=== PATIENT | female | born 1940 | race Caucasian/White ===

== ENCOUNTER 2018-05-22 09:57 | Emergency (ER) | payer MEDICARE, BC ==
[~2018-05-22] VITALS: Ht 170.2 cm; Wt 81.6 kg
[~2018-05-22 09:57] MED LIST: CELE200C PO; CYCL5TAB PO; DIAZ5TAB PO; DOXE150C PO; FLUO20CA36 PO; LEVO100T PO; OMEP20TA5 PO; PROAIR INHALER INH; ROSU10TA PO; TAPE100T9 PO
[2018-05-22 10:27] LABS: BASOPHILS % (AUTO) 0.3 % (0.0-2.0); EOSINOPHILS # (AUTO) 0.1 K/uL (0.0-0.7); EOSINOPHILS % (AUTO) 1.8 % (0.0-7.0); HEMATOCRIT 45.9 % (31.2-41.9); HEMOGLOBIN 15.5 g/dL (10.9-14.3); LYMPHOCYTES # (AUTO) 1.2 K/uL (20.0-40.0); LYMPHOCYTES % (AUTO) 26.5 % (20.5-51.5); MEAN CORPUSCULAR HGB CONC 34 g/dL (32.3-35.6); MEAN CORPUSCULAR VOLUME 94.6 fL (75.5-95.3); MONOCYTES # (AUTO) 0.4 K/uL (2.0-10.0); MONOCYTES % (AUTO) 7.9 % (0.0-11.0); NEUTROPHILS # (AUTO) 2.9 K/uL (1.8-8.9); NEUTROPHILS % (AUTO) 63.5 % (38.5-71.5); PLATELET COUNT (AUTO) 203 K/uL (179-408); RED BLOOD CELL COUNT(AUTO) 4.85 MIL/uL (3.63-4.92); WHITE BLOOD COUNT (AUTO) 4.6 K/uL (3.8-11.8)
--- NOTE | 2018-05-22 10:31 | NUR ---
I property disposal manager MD during the rectal exam. No active rectal bleeding seen during visual rectal exam.
--- NOTE | 2018-05-22 10:32 | NUR ---
MD did the rectal exam and the stool for hemocult was collected. Negative per MD.
[2018-05-22 10:37] LABS: CARBON DIOXIDE 28 mmol/L (21-32); CHLORIDE 106 mmol/L (98-107); CREATININE 1.1 mg/dL (0.6-1.3); GLUCOSE 100 mg/dL (74-106); POTASSIUM 3.9 mmol/L (3.5-5.1); UREA NITROGEN, BLOOD 18 mg/dL (7-18)
--- NOTE | 2018-05-22 11:39 | NUR ---
Copies of all the diagnostic tests were provided to patient. Patient discharged to home in stable conditon. Written and verbal after care instructions given to patient and her private caregiver. Patient and caregiver verbalized understanding of instructions.
== END 2018-05-22 11:41 | disposition home or self-care (01) ==
LOC: ER 09:57
DX: K62.5 Hemorrhage of anus and rectum (principal); Z85.038 Personal history of other malignant neoplasm of large intestine; E78.5 Hyperlipidemia, unspecified; I25.10 Atherosclerotic heart disease of native coronary artery without angina pectoris; J44.9 Chronic obstructive pulmonary disease, unspecified; K21.9 Gastro-esophageal reflux disease without esophagitis; E03.9 Hypothyroidism, unspecified; F17.200 Nicotine dependence, unspecified, uncomplicated; Z90.49 Acquired absence of other specified parts of digestive tract
CPT/HCPCS: 36415; 85025; 85730; A4663

== ENCOUNTER 2019-02-21 11:52 | Emergency (ER) | payer MEDICARE, BC ==
[~2019-02-21] VITALS: Ht 167.6 cm; Wt 79.4 kg
[~2019-02-21 11:52] MED LIST changes: -ROSU10TA PO; +ROSU10TA2 PO
--- NOTE | 2019-02-21 12:23 | NUR ---
KEESHA SWIFT AT BEDSIDE FOR MSE.
[2019-02-21] MEDS ORDERED: ASPI-605 PO (12:31)
[2019-02-21] MEDS ORDERED: MAGNESIUM (12:31)
[2019-02-21] MEDS ORDERED: VICODIN PO (12:31)
[2019-02-21] MEDS ORDERED: VIT B 12 (12:31)
[2019-02-21] MEDS ORDERED: VIT D3 (12:31)
[2019-02-21] MEDS ORDERED: GABA-534 PO (12:31)
[2019-02-21] MEDS ORDERED: ZOLP10TA6 PO (12:31)
[2019-02-21 12:52] LABS: BASOPHILS % (AUTO) 0.3 % (0.0-2.0); EOSINOPHILS % (AUTO) 0.5 % (0.0-7.0); HEMATOCRIT 44.6 % (31.2-41.9); HEMOGLOBIN 14.9 g/dL (10.9-14.3); LYMPHOCYTES # (AUTO) 0.8 K/uL (20.0-40.0); LYMPHOCYTES % (AUTO) 16.7 % (20.5-51.5); MEAN CORPUSCULAR HEMOGLOBIN 32.1 uug (24.7-32.8); MEAN CORPUSCULAR HGB CONC 33 g/dL (32.3-35.6); MEAN CORPUSCULAR VOLUME 96.2 fL (75.5-95.3); MONOCYTES # (AUTO) 0.3 K/uL (2.0-10.0); MONOCYTES % (AUTO) 5.4 % (0.0-11.0); NEUTROPHILS # (AUTO) 3.8 K/uL (1.8-8.9); NEUTROPHILS % (AUTO) 77.1 % (38.5-71.5); PLATELET COUNT (AUTO) 168 K/uL (179-408); RED BLOOD CELL COUNT(AUTO) 4.64 MIL/uL (3.63-4.92)
[2019-02-21 12:53] LABS: CARBON DIOXIDE 29 mmol/L (21-32); CHLORIDE 105 mmol/L (98-107); GLUCOSE 112 mg/dL (74-106); POTASSIUM 4.6 mmol/L (3.5-5.1); UREA NITROGEN, BLOOD 13 mg/dL (7-18)
[2019-02-21 13:05] LABS: ALANINE AMINOTRANSFERASE 24 U/L (14-59); ALKALINE PHOSPHATASE 118 U/L (50-136); ASPARTATE AMINOTRANSFERASE 19 U/L (15-37); BILIRUBIN,DIRECT 0.2 mg/dL (0.0-0.2); BILIRUBIN,TOTAL 0.5 mg/dL (0.2-1.0); TOTAL PROTEIN, SERUM 7.1 g/dL (6.4-8.2)
--- NOTE | 2019-02-21 14:07 | NUR ---
Patient discharged to home in stable conditon. Written and verbal after care instructions given. Patient verbalizes understanding of instructions. ALL BELONGINGS W/ PT. PT SELF-AMBULATED W/O DIFFICULTY. 20G IV ACCESS IN RAC REMOVED PRIOR TO D/C - INNER CANNULA INTACT.
[2019-02-21 14:08] VITALS: BP 141/69
== END 2019-02-21 14:08 | disposition home or self-care (01) ==
LOC: ER 11:52
DX: G62.9 Polyneuropathy, unspecified (principal); E78.5 Hyperlipidemia, unspecified; I25.10 Atherosclerotic heart disease of native coronary artery without angina pectoris; E03.9 Hypothyroidism, unspecified; F17.200 Nicotine dependence, unspecified, uncomplicated; Z90.49 Acquired absence of other specified parts of digestive tract; Z79.899 Other long term (current) drug therapy
CPT/HCPCS: 36415; 70030-TC; 71045; 85025; 85730; 93005; A4663; J7030

== ENCOUNTER 2019-05-12 16:05 | Inpatient (IN) | payer MEDICARE, BC ==
[~2019-05-12] VITALS: Ht 170.2 cm; Wt 77.1 kg
[~2019-05-12 16:05] MED LIST changes: +ASPI-605 PO; +GABA-534 PO; +MAGNESIUM; +VICODIN PO; +VIT B 12; +VIT D3; +ZOLP10TA6 PO
[2019-05-12] MEDS ORDERED: IV NORMAL SALINE 1000 ML BAG IV ONE (16:45)
[2019-05-12 17:07] LABS: BASOPHILS % (AUTO) 0.4 % (0.0-2.0); EOSINOPHILS % (AUTO) 0.6 % (0.0-7.0); HEMATOCRIT 43.2 % (31.2-41.9); HEMOGLOBIN 13.9 g/dL (10.9-14.3); LYMPHOCYTES # (AUTO) 1.3 K/uL (20.0-40.0); LYMPHOCYTES % (AUTO) 28.8 % (20.5-51.5); MEAN CORPUSCULAR HEMOGLOBIN 31.7 uug (24.7-32.8); MEAN CORPUSCULAR HGB CONC 32 g/dL (32.3-35.6); MEAN CORPUSCULAR VOLUME 98.5 fL (75.5-95.3); MONOCYTES # (AUTO) 0.4 K/uL (2.0-10.0); MONOCYTES % (AUTO) 9.7 % (0.0-11.0); NEUTROPHILS # (AUTO) 2.8 K/uL (1.8-8.9); NEUTROPHILS % (AUTO) 60.5 % (38.5-71.5); PLATELET COUNT (AUTO) 162 K/uL (179-408); RED BLOOD CELL COUNT(AUTO) 4.39 MIL/uL (3.63-4.92); WHITE BLOOD COUNT (AUTO) 4.6 K/uL (3.8-11.8)
[2019-05-12 17:11] LABS: *BILIRUBIN,URIN NEGATIVE (NEGATIVE); *BLOOD, URINE 3+ (NEGATIVE); *CLARITY,URINE SLIGHTLY CLOUDY (CLEAR); *COLOR,URINE YELLOW (YELLOW); *KETONES,URINE NEGATIVE (NEGATIVE); *UROBILINOGEN,URINE 0.2 E.U./dl (NORMAL); LEUKOCYTE ESTERASE ,URINE 1+ (NEGATIVE); NITRITE, URINE NEGATIVE (NEGATIVE); UGLUCOSE NEGATIVE (NEGATIVE)
[2019-05-12 17:13] LABS: POTASSIUM 3.9 mmol/L (3.5-5.1)
[2019-05-12 17:19] LABS: BILIRUBIN,DIRECT 0.1 mg/dL (0.0-0.2); BILIRUBIN,TOTAL 0.4 mg/dL (0.2-1.0); TOTAL PROTEIN, SERUM 6.8 g/dL (6.4-8.2)
[2019-05-12 17:36] LABS: RBC,URINE 80-100 /HPF (0-3)
[2019-05-12 17:37] LABS: BACTERIA,URINE FEW /HPF (NONE SEEN)
[2019-05-12 17:38] LABS: SQUAMOUS EPITHELIAL CELL,UR FEW /HPF (NONE SEEN)
[2019-05-12] MEDS ORDERED: ZOLP10TA6 PO (17:50)
[2019-05-12] MEDS ORDERED: DICY10SY2 PO (17:50)
[2019-05-12] MEDS ORDERED: CYAN100T3 PO (17:50)
[2019-05-12] MEDS ORDERED: GABA-534 PO (17:50)
[2019-05-12] MEDS ORDERED: HYDR-3974 PO (17:50)
[2019-05-12] MEDS ORDERED: ASPI-612 PO (17:50)
[2019-05-12] MEDS ORDERED: CHOL200059 PO (17:51)
[2019-05-12] MEDS ORDERED: POTA2TAB18 PO (17:51)
[2019-05-12] MEDS ORDERED: Z GUARD REMEDY PASTE 57 GM TUBE TOP PRN (19:30)
[2019-05-12] MEDS ORDERED: DICYCLOMINE HCL LIQ 10 MG/5 ML UDC PO PRN (19:30)
[2019-05-12] MEDS ORDERED: ONDANSETRON 4 MG/2 ML VIAL IV PRN (19:30)
[2019-05-12] MEDS ORDERED: ACETAMINOPHEN 325 MG TABLET PO PRN (19:30)
[2019-05-12] MEDS ORDERED: DIAZEPAM 5 MG TABLET PO PRN (19:30)
[2019-05-12] MEDS ORDERED: MAGNESIUM HYDROXIDE 30 ML LIQUID UDC PO PRN (19:30)
--- NOTE | 2019-05-12 19:35 | NUR ---
Pt. admitted to m/s , under care of Dr. WILLSON Belongs List completed. report given to ORLANDO STEWART
[2019-05-12 20:47] VITALS: BP 157/82
[2019-05-12] MEDS ORDERED: GABAPENTIN 300 MG CAPSULE PO SCH (21:00)
[2019-05-12] MEDS ORDERED: ZOLPIDEM 5 MG TABLET PO PRN (21:00)
[2019-05-12] MEDS ORDERED: CEFTRIAXONE 1 G in IV DEXTROSE 5% 50 ML IV SCH (21:30)
[2019-05-12] MEDS: HYDROCODONE/APAP 5-325MG TABLET PO PRN (21:51)
[2019-05-12] MEDS: IV NS 1000 ML 1,000 ML IV PRN (21:54)
[2019-05-12] MEDS ORDERED: CEFTRIAXONE /D5W 50ML IVPB **ER PYXIS IV ONE (21:55)
--- NOTE | 2019-05-12 22:00 | NUR ---
Received report from ER nurse at 1945, received patient from ER at 1999. Full body assessment done, belongings accounted for with patient's acknowledgement signature taken for hospital protocols. Oriented with room controls including call light. Fall precautions reinforced. Initial admission process started and documented accordingly. Pt wanted a flu shot, but wants it in the morning. IV access started at ER accidentally pulled out by patient. Reinserted new peripheral IV site at R forearm, 22 G. Noted all MD's admission orders and carried out. At this time, patient is able to ambulate to bathroom with FWW and supervision. Pt complains of loose watery stools x 3, paged Dr. Holt. Awaiting call back. Will continue to monitor patient.
[2019-05-12] MEDS ORDERED: INFLUENZA VACCINE 2019-2020 0.5 ML DISP.SYRIN IM ONE (23:00)
--- NOTE | 2019-05-13 | NUR ---
Patient kept comfortable in bed with warm blankets and provided pain medications for abdominal pain which is effective. Pt also requested for sleeping medication, but pt remains awake and unable to fall asleep. At 05/12 2345 MD called back and ordered for stool Cdif and Imodium for earlier complaints of diarhhea. Pt with one more BM at this time, but with semi formed stool fragments, dark green in color. Sent to lab. Pt refused the Imodium at this time stating she feels better after last bowel movement. Pt's abdominal pain has subsided as well, and patient will try to go to sleep. Pt states that at home, she gets O2, obtained order to start O2 2LPM PRN. Will continue to monitor patient.
[2019-05-13 05:11] VITALS: BP 135/57
--- NOTE | 2019-05-13 05:59 | NUR ---
Patient kept comfortable throughout the night, no further episodes of diarrhea. Placed patient on precautionary isolation for Cdiff. Signs posted at the door. No further complaints of abdominal pain as well. Pt verbalized that the Ambien and Neurontin was not fully effective, and she needs stronger doses, similar to the one she takes at home. Will endorse to AM nurse for proper communication with MD. Patient's own meds to be sent to pharmacy. No further issues. Verbalized that needs were met throughout shift. Will continue to monitor and endorse accordingly.
[2019-05-13] MEDS ORDERED: DICYCLOMINE HCL 10 MG CAPSULE PO PRN (07:15)
[2019-05-13 07:30] LABS: BASOPHILS % (AUTO) 0.3 % (0.0-2.0); EOSINOPHILS # (AUTO) 0.1 K/uL (0.0-0.7); EOSINOPHILS % (AUTO) 2.2 % (0.0-7.0); HEMATOCRIT 39.7 % (31.2-41.9); LYMPHOCYTES # (AUTO) 1.6 K/uL (20.0-40.0); LYMPHOCYTES % (AUTO) 36.2 % (20.5-51.5); MEAN CORPUSCULAR HEMOGLOBIN 32.3 uug (24.7-32.8); MEAN CORPUSCULAR HGB CONC 33 g/dL (32.3-35.6); MEAN CORPUSCULAR VOLUME 98.2 fL (75.5-95.3); MONOCYTES # (AUTO) 0.3 K/uL (2.0-10.0); NEUTROPHILS # (AUTO) 2.3 K/uL (1.8-8.9); NEUTROPHILS % (AUTO) 53.3 % (38.5-71.5); PLATELET COUNT (AUTO) 153 K/uL (179-408); RED BLOOD CELL COUNT(AUTO) 4.04 MIL/uL (3.63-4.92); WHITE BLOOD COUNT (AUTO) 4.4 K/uL (3.8-11.8)
[2019-05-13] MEDS ORDERED: LOPERAMIDE HCL 2 MG CAPSULE PO PRN ×2 (07:30)
[2019-05-13] MEDS ORDERED: LEVOTHYROXINE SODIUM 100 MCG TABLET PO SCH (07:30)
[2019-05-13 07:39] LABS: CARBON DIOXIDE 31 mmol/L (21-32); CHLORIDE 107 mmol/L (98-107); CREATININE 0.9 mg/dL (0.6-1.3); GLUCOSE 86 mg/dL (74-106); MAGNESIUM 2.1 mg/dL (1.8-2.4); POTASSIUM 4.5 mmol/L (3.5-5.1); UREA NITROGEN, BLOOD 11 mg/dL (7-18)
[2019-05-13] MEDS: FLUOXETINE HCL 20 MG CAPSULE PO SCH ×2 (08:49→12:01)
[2019-05-13] MEDS: HYDROCODONE/APAP 5-325MG TABLET PO PRN (08:51)
[2019-05-13] MEDS ORDERED: CYANOCOBALAMIN 1,000 MCG TABLET PO SCH (09:00)
[2019-05-13] MEDS ORDERED: Medication Not On Formulary EA (Rosuvastatin Calcium (Crestor) 10 MG) PO SCH (09:00)
[2019-05-13] MEDS ORDERED: ASPIRIN 325 MG TABLET PO SCH (09:00)
[2019-05-13] MEDS ORDERED: CHOLECALCIFEROL 1,000 UNIT TABLET PO SCH (09:00)
--- NOTE | 2019-05-13 09:22 | NUR ---
Received pt. alert oriented x4 resting in bed. Pt. has IV on R forearm 22 gauge intact patent running prescribed fluids. Pt. denies pain or discomfort. Pt. denies SOB/ difficulty breathing. Pt. on c. diff precautions awaiting stool culture. Pt. has not had any diarrhea episodes on shift but has had a normal BM. Pt. took all AM medications. Safety measures in place. Call light within reach. Will continue to monitor pt.
[2019-05-13] MEDS ORDERED: INFLUENZA VACCINE 2019-2020 0.5 ML DISP.SYRIN IM ONE (11:00)
[2019-05-13 11:20] VITALS: BP 119/44
[2019-05-13] MEDS: IV NS 1000 ML 1,000 ML IV PRN (12:08)
[2019-05-13] MEDS ORDERED: DIPHENOXYLATE HCL/ATROP SULF TABLET PO PRN (13:15)
[2019-05-13] MEDS ORDERED: CIPR-262 PO (13:26)
[2019-05-13] MEDS ORDERED: METR500T PO (14:37)
--- NOTE | 2019-05-13 15:04 | NUR ---
Pt. to be discharged home with caregiver. Iv removed. Name badge removed. Vital signs stable. Educated pt on discharge instructions. All discharge papers signed. All belongings with pt. All prescriptions given to pt. Pt. understands plan of care and to follow up w pcp. Pt. wheeled downstairs by STRUCTURES MECHANIC in stable condition. Pt. will leave via private car.
[2019-05-13] MEDS ORDERED: VANCOMYCIN FOR PO/GT/NG USE PO SCH (17:00)
[2019-05-13] MEDS ORDERED: ATORVASTATIN 20 MG TABLET PO SCH (21:00)
[2019-05-14] MEDS ORDERED: INFLUENZA VACCINE 2019-2020 0.5 ML DISP.SYRIN IM ONE (11:00)
== END 2019-05-13 15:15 | disposition home or self-care (01) | DRG 372 ==
LOC: ER 16:05 → MEDSURG3 19:54
PROVIDERS: ADMIT Internal Medicine; ATTEND Internal Medicine
DX: A04.72 Enterocolitis due to Clostridium difficile, not specified as recurrent (principal); N30.01 Acute cystitis with hematuria; F13.20 Sedative, hypnotic or anxiolytic dependence, uncomplicated; F11.20 Opioid dependence, uncomplicated; J43.2 Centrilobular emphysema; Z99.81 Dependence on supplemental oxygen; Z79.82 Long term (current) use of aspirin; Z90.49 Acquired absence of other specified parts of digestive tract; Z85.038 Personal history of other malignant neoplasm of large intestine; E78.5 Hyperlipidemia, unspecified; N20.0 Calculus of kidney; I25.10 Atherosclerotic heart disease of native coronary artery without angina pectoris; F41.9 Anxiety disorder, unspecified; E03.9 Hypothyroidism, unspecified; Z79.890 Hormone replacement therapy; Z79.899 Other long term (current) drug therapy; G62.9 Polyneuropathy, unspecified; G89.29 Other chronic pain; F32.9 Major depressive disorder, single episode, unspecified
CPT/HCPCS: 36415; 70030-TC; 71045; 83690; 83735; 84100; 85025; 85730; 87086; 93005; A4663; G0378; J0696; J3370; J7030; J7060

== ENCOUNTER 2019-05-23 11:46 | Emergency (ER) | payer MEDICARE, BC ==
[~2019-05-23] VITALS: Ht 170.2 cm; Wt 79.4 kg
[~2019-05-23 11:46] MED LIST changes: -ASPI-605 PO; +ASPI-612 PO; -CELE200C PO; +CHOL200059 PO; +CIPR-262 PO; +CYAN100T3 PO; -CYCL5TAB PO; +DICY10SY2 PO; -DOXE150C PO; +HYDR-3974 PO; -MAGNESIUM; +METR500T PO; -OMEP20TA5 PO; +POTA2TAB18 PO; -PROAIR INHALER INH; -TAPE100T9 PO; -VICODIN PO; -VIT B 12; -VIT D3
--- NOTE | 2019-05-23 13:50 | NUR ---
pt requesting ambulance, called [facility], eta [phone], trip number [id number]
--- NOTE | 2019-05-23 14:48 | NUR ---
Patient discharged to home, via ambulance, in stable conditon. Written and verbal after care instructions given. Patient, and her caregiver, verbalize understanding of instructions.
--- NOTE | 2019-05-23 15:02 | NUR ---
pt transfered to residence with ambulanz.
== END 2019-05-23 15:03 | disposition home or self-care (01) ==
LOC: ER 11:46
DX: S80.02XA Contusion of left knee, initial encounter (principal); S80.01XA Contusion of right knee, initial encounter; E78.5 Hyperlipidemia, unspecified; I25.10 Atherosclerotic heart disease of native coronary artery without angina pectoris; E03.9 Hypothyroidism, unspecified; F17.200 Nicotine dependence, unspecified, uncomplicated; Z79.2 Long term (current) use of antibiotics; Z79.899 Other long term (current) drug therapy; Z79.82 Long term (current) use of aspirin; W18.30XA Fall on same level, unspecified, initial encounter; Y93.89 Activity, other specified; Y92.89 Other specified places as the place of occurrence of the external cause; Y99.8 Other external cause status
CPT/HCPCS: A4663

== ENCOUNTER 2019-07-12 17:48 | Inpatient (IN) | END 2019-07-15 19:30 | disposition home or self-care (01) | DRG 378 | DX: K92.2 Gastrointestinal hemorrhage, unspecified (principal); N39.0 Urinary tract infection, site not specified; J98.11 Atelectasis; K58.2 Mixed irritable bowel syndrome; Z92.21 Personal history of antineoplastic chemotherapy; Z85.038 Personal history of other malignant neoplasm of large intestine; Z92.3 Personal history of irradiation; E78.5 Hyperlipidemia, unspecified; E03.9 Hypothyroidism, unspecified; K21.9 Gastro-esophageal reflux disease without esophagitis; J44.9 Chronic obstructive pulmonary disease, unspecified; M51.36 Other intervertebral disc degeneration, lumbar region; M48.061 Spinal stenosis, lumbar region without neurogenic claudication; Z90.49 Acquired absence of other specified parts of digestive tract; Z87.891 Personal history of nicotine dependence; Z80.0 Family history of malignant neoplasm of digestive organs; I25.10 Atherosclerotic heart disease of native coronary artery without angina pectoris; M41.86 Other forms of scoliosis, lumbar region; Z99.81 Dependence on supplemental oxygen; Z87.01 Personal history of pneumonia (recurrent); Z79.890 Hormone replacement therapy; Z79.82 Long term (current) use of aspirin; Z79.899 Other long term (current) drug therapy; M19.90 Unspecified osteoarthritis, unspecified site ==

== ENCOUNTER 2019-08-13 21:53 | Emergency (ER) | payer MEDICARE, BC ==
[~2019-08-13] VITALS: Ht 167.6 cm; Wt 79.4 kg
[~2019-08-13 21:53] MED LIST changes: +CEPH-570 PO; -CIPR-262 PO; +DICY10CA13 PO; -DICY10SY2 PO; +HYDR-3326 PO; -HYDR-3974 PO; -METR500T PO; +MULT1TAB73 PO; -ZOLP10TA6 PO; +ZOLP12.52 PO
[2019-08-13] MEDS ORDERED: IV NORMAL SALINE 1000 ML BAG IV ONE (23:00)
--- NOTE | 2019-08-13 23:03 | NUR ---
Dr. Wyatt at bedside for MSE
[2019-08-13] MEDS ORDERED: KETAMINE HCL 500 MG/10 ML INJ IV ONE (23:15)
[2019-08-13 23:24] LABS: BASOPHILS % (AUTO) 0.3 % (0.0-2.0); EOSINOPHILS # (AUTO) 0.1 K/uL (0.0-0.7); EOSINOPHILS % (AUTO) 1.5 % (0.0-7.0); HEMATOCRIT 40.5 % (31.2-41.9); HEMOGLOBIN 13.6 g/dL (10.9-14.3); LYMPHOCYTES % (AUTO) 26.1 % (20.5-51.5); MEAN CORPUSCULAR HEMOGLOBIN 32.4 uug (24.7-32.8); MEAN CORPUSCULAR HGB CONC 34 g/dL (32.3-35.6); MEAN CORPUSCULAR VOLUME 96.4 fL (75.5-95.3); MONOCYTES # (AUTO) 0.3 K/uL (2.0-10.0); MONOCYTES % (AUTO) 7.5 % (0.0-11.0); NEUTROPHILS # (AUTO) 2.5 K/uL (1.8-8.9); NEUTROPHILS % (AUTO) 64.6 % (38.5-71.5); PLATELET COUNT (AUTO) 188 K/uL (179-408); WHITE BLOOD COUNT (AUTO) 3.9 K/uL (3.8-11.8)
[2019-08-13] MEDS ORDERED: KETAMINE HCL 500 MG/10 ML INJ ONE (23:25)
[2019-08-13 23:32] LABS: POTASSIUM 4.2 mmol/L (3.5-5.1)
--- NOTE | 2019-08-13 23:33 | NUR ---
Patient taken to CT scan in stable condition
--- NOTE | 2019-08-13 23:45 | NUR ---
patient back from CT scan
[2019-08-13 23:49] LABS: BILIRUBIN,DIRECT 0.2 mg/dL (0.0-0.2); BILIRUBIN,TOTAL 0.5 mg/dL (0.2-1.0); TOTAL PROTEIN, SERUM 7.3 g/dL (6.4-8.2)
--- NOTE | 2019-08-14 00:18 | NUR ---
Patient in bed sleeping but easily arousable. Breathing even and unlabored. NAD noted
--- NOTE | 2019-08-14 02:12 | NUR ---
IV removed. Catheter intact and site benign. Pressure and 4x4 gauze applied to site. No bleeding noted. Patient discharged to home in stable conditon. Written and verbal after care instructions given. Patient verbalizes understanding of instructions. Patient ambulating with steady gait using a walker
[2019-08-14 02:14] VITALS: BP 131/72
== END 2019-08-14 02:12 | disposition home or self-care (01) ==
LOC: ER 21:53
DX: R10.84 Generalized abdominal pain (principal); R19.7 Diarrhea, unspecified; E78.5 Hyperlipidemia, unspecified; I25.10 Atherosclerotic heart disease of native coronary artery without angina pectoris; E03.9 Hypothyroidism, unspecified; Z90.49 Acquired absence of other specified parts of digestive tract; F17.200 Nicotine dependence, unspecified, uncomplicated; Z79.82 Long term (current) use of aspirin; Z79.899 Other long term (current) drug therapy
CPT/HCPCS: 36415; 74176; 80048; 80076; 83605; 83690; 85025; 85730; 93005; 96360; 96361; 99284; J3490; A4663; J7030

== ENCOUNTER 2019-08-19 20:40 | Inpatient (IN) | payer MEDICARE, BC ==
[~2019-08-19] VITALS: Ht 167.6 cm; Wt 80.9 kg
[~2019-08-19 20:40] MED LIST changes: -CEPH-570 PO
[2019-08-19] MEDS ORDERED: IPRATROPIUM BROMIDE NASAL 15 ML BOTTLE 42 MCG/SPRAY NS ONE (21:15)
[2019-08-19] MEDS ORDERED: ALBUTEROL SULFATE 2.5 MG/3 ML NEBU NEB ONE (21:15)
[2019-08-19] MEDS ORDERED: IPRATROPIUM BROMIDE 0.5 MG/2.5 ML NEBU ONE (21:18)
[2019-08-19 21:26] LABS: BASOPHILS % (AUTO) 0.1 % (0.0-2.0); EOSINOPHILS % (AUTO) 0.3 % (0.0-7.0); HEMATOCRIT 41.2 % (31.2-41.9); HEMOGLOBIN 13.6 g/dL (10.9-14.3); LYMPHOCYTES # (AUTO) 0.6 K/uL (20.0-40.0); LYMPHOCYTES % (AUTO) 13.5 % (20.5-51.5); MEAN CORPUSCULAR HEMOGLOBIN 31.9 uug (24.7-32.8); MEAN CORPUSCULAR HGB CONC 33 g/dL (32.3-35.6); MEAN CORPUSCULAR VOLUME 96.6 fL (75.5-95.3); MONOCYTES # (AUTO) 0.2 K/uL (2.0-10.0); MONOCYTES % (AUTO) 4.6 % (0.0-11.0); NEUTROPHILS # (AUTO) 3.5 K/uL (1.8-8.9); NEUTROPHILS % (AUTO) 81.5 % (38.5-71.5); PLATELET COUNT (AUTO) 158 K/uL (179-408); RED BLOOD CELL COUNT(AUTO) 4.26 MIL/uL (3.63-4.92); WHITE BLOOD COUNT (AUTO) 4.2 K/uL (3.8-11.8)
--- NOTE | 2019-08-19 21:30 | NUR ---
BREATHING TREATMENT DONE PLACED ON SUPPORTIVE O2 AT 2%LPM VIA NC
[2019-08-19 21:36] LABS: CREATININE 0.8 mg/dL (0.6-1.3); POTASSIUM 3.6 mmol/L (3.5-5.1)
[2019-08-19 21:41] LABS: BILIRUBIN,DIRECT 0.2 mg/dL (0.0-0.2); BILIRUBIN,TOTAL 0.5 mg/dL (0.2-1.0); TOTAL PROTEIN, SERUM 7.3 g/dL (6.4-8.2)
[2019-08-19] MEDS ORDERED: KETAMINE HCL 500 MG/10 ML INJ IV ONE (22:00)
[2019-08-19] MEDS ORDERED: KETAMINE HCL 500 MG/10 ML INJ ONE (22:22)
--- NOTE | 2019-08-19 22:37 | NUR ---
CALLED [facility])
[2019-08-19] MEDS ORDERED: HYDR-3980 PO (23:09)
[2019-08-19] MEDS ORDERED: NYST15CR TP (23:09)
[2019-08-19] MEDS ORDERED: TRIA80OI2 TP (23:09)
[2019-08-19] MEDS ORDERED: ZOLP10TA6 PO (23:09)
--- NOTE | 2019-08-19 23:27 | NUR ---
BRENDEN CALLED BACK PENDING CTA ABD AND PELVIS
[2019-08-19] MEDS ORDERED: SWABABLE VALVE TRANSFER SET EA MC ONE (23:48)
[2019-08-19] MEDS ORDERED: IOHEXOL 350 100 ML INFUS..BTL ONE (23:48)
[2019-08-19] MEDS ORDERED: ONDANSETRON 4 MG/2 ML VIAL ONE (23:57)
[2019-08-20] MEDS ORDERED: IV NORMAL SALINE 250 ML IV ONE (00:04)
--- NOTE | 2019-08-20 01:49 | NUR ---
EPIC PAGED (EARNESTINE ANTON)
--- NOTE | 2019-08-20 02:03 | NUR ---
PT TO ADMIT TO [facility] RM 306 FOR INTRACTABLE ABDOMINAL PAIN UNDER DR Jeffry KOCH
--- NOTE | 2019-08-20 02:18 | NUR ---
DR EARNESTINE KOCH CALLED BACK
--- NOTE | 2019-08-20 02:19 | NUR ---
ALBARO PERRY WILL CALL BACK FOR REPORT / HAND OFF
--- NOTE | 2019-08-20 02:28 | NUR ---
HAND OFF AND SBAR GIVEN TO ALBARO PERRY
[2019-08-20] MEDS ORDERED: ONDANSETRON 4 MG/2 ML VIAL IV ONE (02:30)
--- NOTE | 2019-08-20 02:34 | NUR ---
DR VANG(SURGERY) ON THE PHONE WITH ERMD
[2019-08-20] MEDS ORDERED: PIPERACILLIN/TAZO 4.5 GM VIAL IV ONE (02:42)
[2019-08-20] MEDS ORDERED: VANCOMYCIN 1G/D5W 200 ML PIGGYBACK IV ONE (02:45)
[2019-08-20] MEDS ORDERED: PIPERACILLIN SODIUM/TAZOBACTAM 4.5 G in IV DEXTROSE 5% 50 ML IV ONE (02:45)
[2019-08-20] MEDS ORDERED: IV NS 1000 ML 1,000 ML IV ONE (02:45)
[2019-08-20 03:00] VITALS: BP 136/50
--- NOTE | 2019-08-20 03:00 | NUR ---
RECEIVED PT FROM ER VIA [facility] UNDER THE CARE OF DR. PEPPER. PT IN NO ACUTE DISTRESS. HALFWAY ASSESSMENT DONE. PT REFUSED TO HAVE HER BUTTOCKS AND GROIN AREA PHTOGRAPH. ADMISSION PROCESS AND CARE PLAN INITIATED. BELONGING LIST DONE. SAFETY AND COMFORT PROVIDED. WILL CONTINUE TO MONITOR.
--- NOTE | 2019-08-20 03:31 | NUR ---
TRANSPORTED TO ROOM VIA [facility] PT STILL WITH VANCOMYCIN ABX INFUSING TO [place] [id number]
--- NOTE | 2019-08-20 03:31 | NUR ---
PT REFUSED TO WEAR HOSPITAL GOWN . PT IN NO ACUTE DISTRESS. WILL CONTINUE TO MONITOR.
--- NOTE | 2019-08-20 06:15 | NUR ---
PT IN NO ACUTE DISTRESS. IV INTACT. SAFETY AND COMFORT PROVIDED. WILL ENDORSE TO INCOMING NURSE FOR CONTINUITY OF CARE.
[2019-08-20] MEDS ORDERED: MORPHINE SULFATE 2 MG/1 ML DISP.SYRIN IV PRN (06:30)
[2019-08-20] MEDS ORDERED: ACETAMINOPHEN 650 MG SUPP.RECT RC PRN (06:30)
[2019-08-20] MEDS ORDERED: ONDANSETRON 4 MG/2 ML VIAL IV PRN (06:30)
[2019-08-20 07:15] LABS: *BILIRUBIN,URIN NEGATIVE (NEGATIVE); *BLOOD, URINE NEGATIVE (NEGATIVE); *CLARITY,URINE CLEAR (CLEAR); *COLOR,URINE YELLOW (YELLOW); *KETONES,URINE NEGATIVE (NEGATIVE); *UROBILINOGEN,URINE 0.2 E.U./dl (NORMAL); LEUKOCYTE ESTERASE ,URINE NEGATIVE (NEGATIVE); NITRITE, URINE NEGATIVE (NEGATIVE); UGLUCOSE NEGATIVE (NEGATIVE)
[2019-08-20 07:41] LABS: BASOPHILS % (AUTO) 0.2 % (0.0-2.0); EOSINOPHILS % (AUTO) 0.2 % (0.0-7.0); HEMATOCRIT 37.8 % (31.2-41.9); HEMOGLOBIN 12.6 g/dL (10.9-14.3); LYMPHOCYTES # (AUTO) 0.8 K/uL (20.0-40.0); LYMPHOCYTES % (AUTO) 23.1 % (20.5-51.5); MEAN CORPUSCULAR HGB CONC 33 g/dL (32.3-35.6); MEAN CORPUSCULAR VOLUME 95.7 fL (75.5-95.3); MONOCYTES # (AUTO) 0.2 K/uL (2.0-10.0); NEUTROPHILS # (AUTO) 2.6 K/uL (1.8-8.9); NEUTROPHILS % (AUTO) 70.5 % (38.5-71.5); PLATELET COUNT (AUTO) 159 K/uL (179-408); RED BLOOD CELL COUNT(AUTO) 3.95 MIL/uL (3.63-4.92); WHITE BLOOD COUNT (AUTO) 3.7 K/uL (3.8-11.8)
[2019-08-20 07:49] LABS: CREATININE 0.7 mg/dL (0.6-1.3); POTASSIUM 3.3 mmol/L (3.5-5.1)
[2019-08-20 07:54] LABS: BILIRUBIN,TOTAL 0.5 mg/dL (0.2-1.0); MAGNESIUM 1.7 mg/dL (1.8-2.4); PHOSPHOROUS 2.7 mg/dL (2.5-4.9); TOTAL PROTEIN, SERUM 6.5 g/dL (6.4-8.2)
--- NOTE | 2019-08-20 08:00 | NUR ---
AWAKE ALERT AND ORIOENT X3 NO SS OF ACUTE PAIN OR DISTRESS. SR ON MONITOR . KEPT NPO ORDERED.
[2019-08-20 08:02] LABS: THYROID STIMULATING HORMONE 1.189 mIU/mL (0.358-3.740)
[2019-08-20] MEDS: PANTOPRAZOLE SODIUM 40 MG VIAL IV SCH (08:09)
[2019-08-20] MEDS: ENOXAPARIN SODIUM 80 MG/0.8 ML DISP.SYRIN SQ SCH ×2 (08:10→20:09)
[2019-08-20] MEDS: POTASSIUM CHLORIDE 20 MEQ in IV D5/ 0.9% NACL 1,000 ML IV PRN (08:27)
--- NOTE | 2019-08-20 09:45 | NUR ---
SEEN BY PHYSICAL THERAPIST, TOLERATED WALKING WITH 4WW AND O2 AT 2L. SEE PT NOTES
[2019-08-20] MEDS: MAGNESIUM SULFATE/D5W 100 ML IV SCH ×2 (11:05→11:29)
--- NOTE | 2019-08-20 11:24 | NUR ---
SEEN BY HOSPITALIST FOR FOLLOW-UP SEE NOTES
[2019-08-20 12:00] VITALS: BP 127/76
[2019-08-20] MEDS: POTASSIUM CHLORIDE 50 ML IV SCH ×2 (14:31→15:38)
--- NOTE | 2019-08-20 15:44 | NUR ---
C/O MODERATE TO SEVERE PAIN BOTH KNEES MEDICATED WITH MORPHINE AND OBSERVED
[2019-08-20 16:38] VITALS: BP 119/40
--- NOTE | 2019-08-20 19:20 | NUR ---
RECEIVED PATIENT LYING IN BED. AAOX4. IN NO ACUTE DISTRESS. DENIES ANY PAIN OR SOB AT THIS TIME. NSR ON TELE AT 80/MIN. IV SITE ON RIGHT AC INTACT AND PATENT. IVF INFUSING. NPO STATUS. SAFETY MEASURE INITIATED AND CALL SIFUENTES WITHIN REACHED.
[2019-08-20 20:21] VITALS: BP 112/76
[2019-08-21] VITALS: BP 120/54
--- NOTE | 2019-08-21 03:00 | NUR ---
Patient IV got pulled out accidentally, patient unaware how it happened. Noted with minimal bleeding on site. Cleaned affected area. new IV started on left FA #22G.
[2019-08-21 04:00] VITALS: BP 127/55
[2019-08-21] MEDS: POTASSIUM CHLORIDE 20 MEQ in IV D5/ 0.9% NACL 1,000 ML IV PRN (04:47)
--- NOTE | 2019-08-21 05:55 | NUR ---
AAOX4. IN NO ACUTE DISTRESS. DENIES ANY PAIN OR SOB. NSR ON TELE AT 74/MIN. IV SITE ON LEFT FA INTACT AND PATENT. IVF INFUSING. NPO STATUS.NEEDS ASSESSED AND ATTENDED TO. SAFETY MEASURE MAINTAINED AND CALL SIFUENTES WITHIN REACHED.
[2019-08-21 06:41] LABS: BASOPHILS % (AUTO) 0.3 % (0.0-2.0); EOSINOPHILS % (AUTO) 0.7 % (0.0-7.0); HEMATOCRIT 36.4 % (31.2-41.9); HEMOGLOBIN 12.2 g/dL (10.9-14.3); LYMPHOCYTES # (AUTO) 0.8 K/uL (20.0-40.0); LYMPHOCYTES % (AUTO) 30.4 % (20.5-51.5); MEAN CORPUSCULAR HGB CONC 33 g/dL (32.3-35.6); MEAN CORPUSCULAR VOLUME 95.8 fL (75.5-95.3); MONOCYTES # (AUTO) 0.2 K/uL (2.0-10.0); MONOCYTES % (AUTO) 8.4 % (0.0-11.0); NEUTROPHILS # (AUTO) 1.6 K/uL (1.8-8.9); NEUTROPHILS % (AUTO) 60.2 % (38.5-71.5); PLATELET COUNT (AUTO) 161 K/uL (179-408); WHITE BLOOD COUNT (AUTO) 2.7 K/uL (3.8-11.8)
[2019-08-21 06:43] LABS: CREATININE 0.7 mg/dL (0.6-1.3); PHOSPHOROUS 2.6 mg/dL (2.5-4.9); POTASSIUM 3.5 mmol/L (3.5-5.1)
--- NOTE | 2019-08-21 08:00 | NUR ---
AWAKE ALERT AND VERBALLY RESPONSIVE WITH PERIODS OF CONFUSION/FORGETFULNESS, NO SS OF PAIN OR DISTRESS WITH O2 AT 2L NC SATURATING 98%, SR ON MONITOR. REMAINS NPO AWAITING HOSPITALIST REGARDING PLAN OF CARE
[2019-08-21] MEDS: PANTOPRAZOLE SODIUM 40 MG VIAL IV SCH (08:19)
[2019-08-21] MEDS: ENOXAPARIN SODIUM 80 MG/0.8 ML DISP.SYRIN SQ SCH (08:20)
[2019-08-21 11:02] VITALS: BP 108/48
--- NOTE | 2019-08-21 12:00 | NUR ---
SEEN BY NURSERYPERSON WITH INSTRUCTION THAT IF TOLERATING DIET , PATIENT CAN BE DISCHARGED. DIET STARTED NO N/V OBSERVED AFTER MEAL
[2019-08-21 15:12] VITALS: BP 118/52
--- NOTE | 2019-08-21 17:22 | NUR ---
DISCHARGED HOME STABLE ACCOMPANIED BY SON WITH MEDICATION AND FOLLOW-UP INSTRUCTION WITH PCP
== END 2019-08-21 17:28 | disposition home or self-care (01) | DRG 392 ==
LOC: ER 20:43 → TELE3 08-20 03:00
PROVIDERS: ADMIT Internal Medicine; ATTEND Registered Nurse
DX: R10.32 Left lower quadrant pain (principal); J96.10 Chronic respiratory failure, unspecified whether with hypoxia or hypercapnia; N39.0 Urinary tract infection, site not specified; J44.0 Chronic obstructive pulmonary disease with (acute) lower respiratory infection; E87.2 Acidosis; Z90.49 Acquired absence of other specified parts of digestive tract; Z85.038 Personal history of other malignant neoplasm of large intestine; E03.9 Hypothyroidism, unspecified; Z79.890 Hormone replacement therapy; Z99.81 Dependence on supplemental oxygen; E83.42 Hypomagnesemia; E66.9 Obesity, unspecified; J06.9 Acute upper respiratory infection, unspecified; K57.10 Diverticulosis of small intestine without perforation or abscess without bleeding; Z87.01 Personal history of pneumonia (recurrent); E87.6 Hypokalemia; E78.5 Hyperlipidemia, unspecified; I25.10 Atherosclerotic heart disease of native coronary artery without angina pectoris; N20.0 Calculus of kidney; M77.9 Enthesopathy, unspecified; M41.9 Scoliosis, unspecified; Z90.710 Acquired absence of both cervix and uterus; Z87.891 Personal history of nicotine dependence; G89.29 Other chronic pain; R19.4 Change in bowel habit; Z79.82 Long term (current) use of aspirin; M19.90 Unspecified osteoarthritis, unspecified site
CPT/HCPCS: 36415; 71045; 83605; 83690; 83735; 84100; 84443; 85025; 85730; 87400; 93005; A4663; C9113; G0378; J1650; J2270; J2405; J2543; J3370; J3475; J3480; J3490; J3590; J7030; J7042; J7050; J7060; Q9967

== ENCOUNTER 2020-01-09 20:27 | Emergency (ER) | payer MEDICARE, BC ==
[~2020-01-09] VITALS: Ht 170.2 cm; Wt 77.1 kg
[~2020-01-09 20:27] MED LIST changes: -HYDR-3326 PO; +MULT-594 PO; -MULT1TAB73 PO; +NYST15CR TP; +TRIA80OI2 TP; -ZOLP12.52 PO
--- NOTE | 2020-01-09 20:45 | NUR ---
Patient walked into ER with son with use of walker c/o watery diarrhea for 5 days. Denies N/V.
[2020-01-09 21:32] LABS: BASOPHILS % (AUTO) 0.2 % (0.0-2.0); EOSINOPHILS % (AUTO) 0.3 % (0.0-7.0); HEMATOCRIT 41.1 % (31.2-41.9); HEMOGLOBIN 13.7 g/dL (10.9-14.3); LYMPHOCYTES % (AUTO) 19.2 % (20.5-51.5); MEAN CORPUSCULAR HEMOGLOBIN 31.9 uug (24.7-32.8); MEAN CORPUSCULAR HGB CONC 33 g/dL (32.3-35.6); MEAN CORPUSCULAR VOLUME 95.7 fL (75.5-95.3); MONOCYTES # (AUTO) 0.4 K/uL (2.0-10.0); MONOCYTES % (AUTO) 6.9 % (0.0-11.0); NEUTROPHILS % (AUTO) 73.4 % (38.5-71.5); PLATELET COUNT (AUTO) 210 K/uL (179-408); RED BLOOD CELL COUNT(AUTO) 4.29 MIL/uL (3.63-4.92); WHITE BLOOD COUNT (AUTO) 5.4 K/uL (3.8-11.8)
[2020-01-09 21:42] LABS: CREATININE 1.1 mg/dL (0.6-1.3); POTASSIUM 3.7 mmol/L (3.5-5.1)
--- NOTE | 2020-01-09 21:45 | NUR ---
Patient ambulatory to restroom with use of walker. Gave stool sample and sent to lab.
[2020-01-09 21:48] LABS: BILIRUBIN,DIRECT 0.2 mg/dL (0.0-0.2); BILIRUBIN,TOTAL 0.5 mg/dL (0.2-1.0); TOTAL PROTEIN, SERUM 7.2 g/dL (6.4-8.2)
[2020-01-09 23:00] VITALS: BP 118/88
--- NOTE | 2020-01-09 23:00 | NUR ---
Patient discharged to home in stable condition with son taking patient home. Written and verbal after care instructions given. Patient verbalizes understanding of instructions. Stressed follow up or return to ER for worsening s/s.
== END 2020-01-09 23:01 | disposition home or self-care (01) ==
LOC: ER 20:33
DX: R19.7 Diarrhea, unspecified (principal); E78.5 Hyperlipidemia, unspecified; Z85.038 Personal history of other malignant neoplasm of large intestine; Z90.49 Acquired absence of other specified parts of digestive tract
CPT/HCPCS: 36415; 85025; A4663

== ENCOUNTER 2021-01-31 08:00 | Inpatient (IN) | payer MEDICARE, BC ==
[~2021-01-31] VITALS: Ht 167.6 cm; Wt 81.6 kg
[~2021-01-31 08:00] MED LIST changes: -CYAN100T3 PO; +CYAN100T44 PO; -DICY10CA13 PO
[2021-01-31 08:39] LABS: HEMATOCRIT 37.3 % (31.2-41.9); MEAN CORPUSCULAR HEMOGLOBIN 31.2 uug (24.7-32.8); MEAN CORPUSCULAR VOLUME 95.4 fL (75.5-95.3); PLATELET COUNT (AUTO) 207 K/uL (179-408)
--- NOTE | 2021-01-31 08:44 | NUR ---
PT IS IN ROOM #1B. DR ROBLES EVALUATED THE PT.
[2021-01-31] MEDS ORDERED: DIPH1TAB PO (08:45)
[2021-01-31] MEDS ORDERED: BISM262T15 PO (08:45)
[2021-01-31] MEDS ORDERED: GABA300C PO (08:45)
[2021-01-31] MEDS ORDERED: MOME15OI2 TP (08:45)
[2021-01-31] MEDS ORDERED: LACT1CAP69 PO (08:45)
[2021-01-31] MEDS ORDERED: ZINC50TA69 PO (08:45)
[2021-01-31] MEDS ORDERED: ZOLP10TA2 PO (08:45)
[2021-01-31] MEDS ORDERED: ASCO-375 PO (08:45)
[2021-01-31] MEDS ORDERED: SENN-18 PO (08:45)
[2021-01-31] MEDS ORDERED: HYDR-3972 PO (08:45)
[2021-01-31] MEDS ORDERED: CELE200C PO (08:45)
[2021-01-31 08:48] LABS: CARBON DIOXIDE 31 mmol/L (21-32); CHLORIDE 103 mmol/L (98-107); CREATININE 0.9 mg/dL (0.6-1.3); GLUCOSE 100 mg/dL (74-106); UREA NITROGEN, BLOOD 27 mg/dL (7-18)
[2021-01-31 08:49] LABS: ETHANOL < 3 MG/DL (0-0)
[2021-01-31 08:55] LABS: ACETAMINOPHEN < 2.0 ug/mL (10-30); ALANINE AMINOTRANSFERASE 20 U/L (14-59); ALKALINE PHOSPHATASE 107 U/L (50-136); ASPARTATE AMINOTRANSFERASE 20 U/L (15-37); BILIRUBIN,DIRECT 0.1 mg/dL (0.0-0.2); BILIRUBIN,TOTAL 0.3 mg/dL (0.2-1.0); TOTAL PROTEIN, SERUM 6.9 g/dL (6.4-8.2)
[2021-01-31 09:44] LABS: THYROID STIMULATING HORMONE 2.124 mIU/mL (0.358-3.740)
--- NOTE | 2021-01-31 13:00 | NUR ---
80 YEAR OLD FEMALE RECEIVED FROM ER FOR HIP FX.PT IS AXOX3 CALL LIGHT WITH IN REACH VS ARE STABLE , NOTIFIED FOR ADMISSION ORDERS
--- NOTE | 2021-01-31 13:08 | NUR ---
REPORT WAS GIVEN TO RN M/S. PT WAS TRANSFERED TO ROOM #320.
[2021-01-31 13:24] VITALS: BP 147/36
[2021-01-31 15:51] VITALS: BP 147/54
[2021-01-31] MEDS ORDERED: ONDANSETRON 4 MG/2 ML VIAL IV PRN (16:00)
[2021-01-31] MEDS ORDERED: Z GUARD REMEDY PASTE 57 GM TUBE TOP PRN (16:00)
[2021-01-31] MEDS ORDERED: DIPHENOXYLATE HCL/ATROP SULF TABLET PO PRN (16:00)
[2021-01-31] MEDS ORDERED: NYSTATIN CREAM 30 GM TUBE TP SCH (17:00)
[2021-01-31] MEDS: CELECOXIB 200 MG CAPSULE PO SCH (17:13)
[2021-01-31] MEDS: DIAZEPAM 5 MG TABLET PO SCH (17:13)
[2021-01-31] MEDS: FLUOXETINE HCL 20 MG CAPSULE PO SCH (17:43)
[2021-01-31] MEDS ORDERED: BUMETANIDE INJ 4 MG in IV DEXTROSE 5% 24 ML IV ONE (18:00)
--- NOTE | 2021-01-31 20:00 | NUR ---
RECEIVED PATIENT AWAKE IN BED. A/O X3, VERY FORGETFUL AND ALEKNAGIK. VS WNL. H/L INTACT AND PATENT. DENIES ANY PAIN OR DISCOMFORT. NO RESP. DISTRESS NOTED. BED ALARM ON. CALL LIGHT IN REACH. ALL NEEDS ATTENDED. WILL CONTINUE TO MONITOR AND ASSESS.
[2021-01-31 20:15] VITALS: BP 149/80
[2021-01-31] MEDS: GABAPENTIN 300 MG CAPSULE PO SCH (20:32)
[2021-01-31] MEDS: ATORVASTATIN 20 MG TABLET PO SCH (20:32)
[2021-01-31] MEDS ORDERED: ATORVASTATIN 10 MG TABLET PO SCH (21:00)
[2021-01-31] MEDS ORDERED: POTASSIUM CHLORIDE 20 MEQ TAB.PRT.SR PO ONE (21:00)
[2021-01-31] MEDS: MOMETASONE FUROATE TP SCH (22:00)
[2021-02-01 04:18] VITALS: BP 100/45
[2021-02-01] MEDS: PANTOPRAZOLE SODIUM 40 MG TABLET.DR PO SCH (06:07)
[2021-02-01] MEDS: LEVOTHYROXINE SODIUM 100 MCG TABLET PO SCH (06:07)
[2021-02-01 06:46] LABS: MEAN CORPUSCULAR HEMOGLOBIN 31.3 uug (24.7-32.8); MEAN CORPUSCULAR VOLUME 94.9 fL (75.5-95.3); PLATELET COUNT (AUTO) 190 K/uL (179-408)
[2021-02-01 07:25] LABS: BILIRUBIN,TOTAL 0.6 mg/dL (0.2-1.0); CREATININE 0.9 mg/dL (0.6-1.3); MAGNESIUM 2.2 mg/dL (1.8-2.4); PHOSPHOROUS 3.4 mg/dL (2.5-4.9); POTASSIUM 3.8 mmol/L (3.5-5.1); TOTAL PROTEIN, SERUM 6.2 g/dL (6.4-8.2)
[2021-02-01] MEDS: CELECOXIB 200 MG CAPSULE PO SCH ×2 (08:09→16:38)
[2021-02-01] MEDS: ASPIRIN 325 MG TABLET PO SCH (08:09)
[2021-02-01] MEDS: CHOLECALCIFEROL 1,000 UNIT TABLET PO SCH (08:09)
[2021-02-01] MEDS: FLUOXETINE HCL 20 MG CAPSULE PO SCH ×3 (08:10→16:38)
[2021-02-01] MEDS: ASCORBIC ACID 500 MG TABLET PO SCH (08:10)
[2021-02-01] MEDS: DIAZEPAM 5 MG TABLET PO SCH ×3 (08:10→16:38)
[2021-02-01] MEDS: CYANOCOBALAMIN 1,000 MCG TABLET PO SCH (08:10)
[2021-02-01] MEDS: MOMETASONE FUROATE TP SCH ×2 (08:41→16:38)
[2021-02-01] MEDS ORDERED: CYANOCOBALAMIN 100 MCG TABLET PO SCH (09:00)
[2021-02-01 11:49] VITALS: BP 103/59
[2021-02-01 16:00] VITALS: BP 106/44
[2021-02-01 16:04] LABS: *BILIRUBIN,URIN NEGATIVE (NEGATIVE); *BLOOD, URINE NEGATIVE (NEGATIVE); *CLARITY,URINE CLEAR (CLEAR); *COLOR,URINE YELLOW (YELLOW); *KETONES,URINE NEGATIVE (NEGATIVE); *UROBILINOGEN,URINE 0.2 E.U./dl (NORMAL); LEUKOCYTE ESTERASE ,URINE NEGATIVE (NEGATIVE); NITRITE, URINE NEGATIVE (NEGATIVE); UGLUCOSE NEGATIVE (NEGATIVE)
[2021-02-01 16:13] LABS: *AMPHETAMINE, URINE NEGATIVE (NEGATIVE); *CANNABINOID, URINE NEGATIVE (NEGATIVE); *COCCAINE, URINE NEGATIVE (NEGATIVE); *OPIATE, URINE POSITIVE (NEGATIVE); *PHENCYCLIDINE SCREEN,URINE NEGATIVE (NEGATIVE)
[2021-02-01 20:00] VITALS: BP 135/39
[2021-02-01] MEDS: GABAPENTIN 300 MG CAPSULE PO SCH (20:08)
[2021-02-01] MEDS: ATORVASTATIN 20 MG TABLET PO SCH ×2 (20:09→20:15)
--- NOTE | 2021-02-01 20:16 | NUR ---
Pt refused Lipitor and stated that she does not normally take high cholesterol medication and does not have high cholesterol.
[2021-02-01] MEDS ORDERED: MIRALAX 17 GM POWD.PACK PO PRN (21:00)
[2021-02-01] MEDS ORDERED: ZOLPIDEM 5 MG TABLET PO PRN (22:30)
[2021-02-02 04:13] VITALS: BP 106/38
--- NOTE | 2021-02-02 05:43 | NUR ---
Pt slept throughout the night. Denies pain or SOB. At beginning of shift, pt requested that we give her a laxative because her stomach feels "full" and she usually takes a laxative at home to ease these symptoms. Dr. Foster notified with orders for Miralax. Pt tolerated well and was able to have a BM. No distress noted at this time, will endorse to day shift.
[2021-02-02] MEDS: LEVOTHYROXINE SODIUM 100 MCG TABLET PO SCH (06:11)
[2021-02-02] MEDS: PANTOPRAZOLE SODIUM 40 MG TABLET.DR PO SCH (06:11)
[2021-02-02 06:18] LABS: HEMATOCRIT 34.7 % (31.2-41.9); MEAN CORPUSCULAR HEMOGLOBIN 30.5 uug (24.7-32.8); MEAN CORPUSCULAR VOLUME 95.5 fL (75.5-95.3); PLATELET COUNT (AUTO) 171 K/uL (179-408)
[2021-02-02 06:38] LABS: CREATININE 0.7 mg/dL (0.6-1.3); MAGNESIUM 2.1 mg/dL (1.8-2.4); PHOSPHOROUS 3.4 mg/dL (2.5-4.9); POTASSIUM 4.1 mmol/L (3.5-5.1)
--- NOTE | 2021-02-02 07:30 | NUR ---
Alert and oriented able to make needs known. On 2.5 lpm via nc tolerated. No sob noted. Patient states pain in the knees but tolerable for now. Iv is intact. Kept comfortable. Safety and fall measures maintained.
[2021-02-02 08:00] VITALS: BP 108/45
[2021-02-02] MEDS: CHOLECALCIFEROL 1,000 UNIT TABLET PO SCH (08:32)
[2021-02-02] MEDS: ASCORBIC ACID 500 MG TABLET PO SCH (08:32)
[2021-02-02] MEDS: FLUOXETINE HCL 20 MG CAPSULE PO SCH ×2 (08:32→12:41)
[2021-02-02] MEDS: CYANOCOBALAMIN 1,000 MCG TABLET PO SCH (08:32)
[2021-02-02] MEDS: DIAZEPAM 5 MG TABLET PO SCH ×2 (08:32→12:41)
[2021-02-02] MEDS: ASPIRIN 325 MG TABLET PO SCH (08:32)
[2021-02-02] MEDS: CELECOXIB 200 MG CAPSULE PO SCH (08:32)
[2021-02-02] MEDS: HYDROCODONE/APAP 5-325MG TABLET PO PRN ×2 (09:29→13:50)
[2021-02-02] MEDS: MOMETASONE FUROATE TP SCH (09:29)
--- NOTE | 2021-02-02 10:20 | NUR ---
Patient removes her cannula bec it dries her nose. Per patient she removes her oxygen for a few hours at home also. Says she will put it back on in a few minutes. No distress noted.
[2021-02-02 11:59] VITALS: BP 100/62
[2021-02-02] MEDS ORDERED: ASPI-1100 PO (14:15)
[2021-02-02] MEDS ORDERED: PANT40TA2 PO (14:15)
--- NOTE | 2021-02-02 14:30 | NUR ---
Patient's belongings inventoried has $[id number] in [place] in her wallet. Charge nurse and DON aware.
--- NOTE | 2021-02-02 15:19 | NUR ---
PATIENT WANTS A [employer]FACE FIRE SUPPORT PLANNER NURSE. TOLD HER WE CAN'T PROVIDE ONE BUT CAN ARRANGE FOR HOME HEALTH. EXPLAINED TO PATIENT AND SHE'S AGREEABLE TO HOME HEALTH. INFORMED DARSHANA VALERIO.
--- NOTE | 2021-02-02 16:30 | NUR ---
Patient is discharged to home. Alert and oriented x4 very pleasant and excited to go home. Medication and follow up instruction given to the patient. She verbalized understanding and stated will follow up with her primary doctor. Informed her that CM will set up hh and will call her/her sons. CM was provided sons' phone numbers. Patient is comfortable and stable. Discharged via gurney picked up by custom stock maker from [facility]. Son Chase aware.
[2021-02-02] MEDS ORDERED: DOCUSATE SODIUM 100 MG CAPSULE PO SCH (21:00)
== END 2021-02-02 17:14 | disposition home health service (06) | DRG 604 ==
LOC: ER 08:00 → MEDSURG3 12:32
PROVIDERS: ADMIT Nurse Practitioner Acute Care; ATTEND Internal Medicine
DX: S80.02XA Contusion of left knee, initial encounter (principal); E43 Unspecified severe protein-calorie malnutrition; I50.32 Chronic diastolic (congestive) heart failure; D68.59 Other primary thrombophilia; S70.02XA Contusion of left hip, initial encounter; S50.12XA Contusion of left forearm, initial encounter; W19.XXXA Unspecified fall, initial encounter; E78.5 Hyperlipidemia, unspecified; E66.01 Morbid (severe) obesity due to excess calories; G89.4 Chronic pain syndrome; F32.9 Major depressive disorder, single episode, unspecified; E03.9 Hypothyroidism, unspecified; G47.00 Insomnia, unspecified; I25.10 Atherosclerotic heart disease of native coronary artery without angina pectoris; I11.0 Hypertensive heart disease with heart failure; G62.9 Polyneuropathy, unspecified; F41.9 Anxiety disorder, unspecified; Z99.81 Dependence on supplemental oxygen; Z87.01 Personal history of pneumonia (recurrent); Z79.82 Long term (current) use of aspirin; J44.9 Chronic obstructive pulmonary disease, unspecified; Z20.822 Contact with and (suspected) exposure to COVID-19; Z85.038 Personal history of other malignant neoplasm of large intestine; Z90.49 Acquired absence of other specified parts of digestive tract; Y92.009 Unspecified place in unspecified non-institutional (private) residence as the place of occurrence of the external cause; Z74.09 Other reduced mobility; M17.0 Bilateral primary osteoarthritis of knee; D75.89 Other specified diseases of blood and blood-forming organs; Z79.890 Hormone replacement therapy; Z68.29 Body mass index [BMI] 29.0-29.9, adult
CPT/HCPCS: 36415; 70030-TC; 70450; 71045; 72192; 73502; 73560; 83605; 83735; 84100; 84443; 85025; 85730; 87040; 87086; 93005; 93307; 97161; A4663; G0378; G0480; J3490; J7030; J7060

== ENCOUNTER 2023-02-01 16:20 | Inpatient (IN) | payer MEDICARE, BC ==
[~2023-02-01] VITALS: Ht 162.6 cm; Wt 69.9 kg
[~2023-02-01 16:20] MED LIST changes: +ASCO-375 PO; +ASPI-1100 PO; -ASPI-612 PO; +BISM262T15 PO; +CELE200C PO; +DIPH1TAB PO; -GABA-534 PO; +GABA300C PO; +HYDR-3972 PO; +LACT1CAP69 PO; +MOME15OI2 TP; -MULT-594 PO; -NYST15CR TP; +PANT40TA2 PO; -POTA2TAB18 PO; +SENN-18 PO; -TRIA80OI2 TP; +ZINC50TA69 PO; +ZOLP10TA2 PO
[2023-02-01] MEDS ORDERED: HALOPERIDOL LACTATE 5 MG/1 ML VIAL IM ONE ×2 (16:30→17:30)
[2023-02-01] MEDS ORDERED: LORAZEPAM 2 MG/1 ML VIAL IM ONE ×2 (16:30→17:30)
[2023-02-01] MEDS ORDERED: HALOPERIDOL LACTATE 5 MG/1 ML VIAL ONE (16:38)
[2023-02-01] MEDS ORDERED: LORAZEPAM 2 MG/1 ML VIAL ONE (16:39)
[2023-02-01 17:41] LABS: HEMATOCRIT 41.6 % (31.2-41.9); MEAN CORPUSCULAR HEMOGLOBIN 30.6 uug (24.7-32.8); MEAN CORPUSCULAR VOLUME 92.1 fL (75.5-95.3); PLATELET COUNT (AUTO) 203 K/uL (179-408)
--- NOTE | 2023-02-01 17:48 | NUR ---
Spoke to Pt's son Brien Redding, and requested med list, he stated will bring it in AM.
[2023-02-01] MEDS ORDERED: FURO20TA4 PO (17:50)
[2023-02-01 17:51] LABS: *AMPHETAMINE, URINE NEGATIVE (NEGATIVE); *BLOOD, URINE NEGATIVE (NEGATIVE); *CANNABINOID, URINE POSITIVE (NEGATIVE); *CLARITY,URINE CLEAR (CLEAR); *COCCAINE, URINE NEGATIVE (NEGATIVE); *COLOR,URINE YELLOW (YELLOW); *KETONES,URINE NEGATIVE (NEGATIVE); *PHENCYCLIDINE SCREEN,URINE NEGATIVE (NEGATIVE); *UROBILINOGEN,URINE 0.2 E.U./dl (NORMAL); LEUKOCYTE ESTERASE ,URINE NEGATIVE (NEGATIVE); NITRITE, URINE NEGATIVE (NEGATIVE); PH,URINE 5.5 (5.0-8.0); UGLUCOSE NEGATIVE (NEGATIVE)
[2023-02-01 18:06] LABS: ACETAMINOPHEN < 10.0 ug/mL (10-30)
[2023-02-01 18:14] LABS: CARBON DIOXIDE 26 mmol/L (21-32); CHLORIDE 103 mmol/L (98-107); CREATININE 2.1 mg/dL (0.6-1.3); POTASSIUM 3.4 mmol/L (3.5-5.1); UREA NITROGEN, BLOOD 43 mg/dL (7-18)
[2023-02-01 18:17] LABS: WBC,URINE 0-3 /HPF (0-3)
[2023-02-01 18:18] LABS: SQUAMOUS EPITHELIAL CELL,UR MODERATE /HPF (NONE SEEN)
[2023-02-01 18:19] LABS: BACTERIA,URINE FEW /HPF (NONE SEEN); CALCIUM OXALATE CRYSTALS,UR FEW /HPF (NONE SEEN)
[2023-02-01 18:21] LABS: ALANINE AMINOTRANSFERASE 29 U/L (14-59); ALKALINE PHOSPHATASE 125 U/L (50-136); ASPARTATE AMINOTRANSFERASE 32 U/L (15-37); BILIRUBIN,TOTAL 1.4 mg/dL (0.2-1.0); CREATINE KINASE, TOTAL 104 U/L (26-192); TOTAL PROTEIN, SERUM 7.3 g/dL (6.4-8.2)
[2023-02-01] MEDS ORDERED: HYDR-501 PO ×2 (19:07)
--- NOTE | 2023-02-01 19:15 | NUR ---
REPORT RECIEVED FROM MINNIE PERRY.
[2023-02-01 21:00] VITALS: BP 104/51; TEMP 98.6; O2SAT 94
[2023-02-01] MEDS ORDERED: POTASSIUM CHLORIDE 20 MEQ in IV LACTATED RINGERS SOLUTION 1,000 ML IV PRN (21:00)
[2023-02-01] MEDS ORDERED: OLANZAPINE 10 MG VIAL IM PRN (21:00)
[2023-02-01] MEDS ORDERED: ACETAMINOPHEN 325 MG TABLET PO PRN (21:00)
[2023-02-01] MEDS ORDERED: REMEDY ESSENTIAL ZINC PASTE 113 GM TP PRN (21:00)
[2023-02-01] MEDS ORDERED: DIAZEPAM 5 MG TABLET PO PRN (21:00)
[2023-02-01] MEDS ORDERED: ONDANSETRON 4 MG/2 ML VIAL IV PRN (21:00)
--- NOTE | 2023-02-01 21:30 | NUR ---
Pt. admitted to RM 307 , under care of Dr. BROWNING Belongs List completed
[2023-02-01 21:44] LABS: *BILIRUBIN,URIN 1+ (NEGATIVE)
[2023-02-01] MEDS: ATORVASTATIN 20 MG TABLET PO SCH (21:59)
[2023-02-01] MEDS: OLANZAPINE 10 MG VIAL IM PRN (23:21)
[2023-02-01] MEDS: METOPROLOL TARTRATE 25 MG TABLET PO SCH (23:30)
[2023-02-01] MEDS: ASPIRIN EC 81 MG TABLET.DR PO SCH (23:30)
[2023-02-02] VITALS (7 sets, daily range): BP systolic 96–127; BP diastolic 53–88; TEMP 97.1–98.9; O2SAT 93–98
[2023-02-02] MEDS: LEVOTHYROXINE SODIUM 100 MCG TABLET PO SCH (06:33)
[2023-02-02] MEDS: PANTOPRAZOLE SODIUM 40 MG TABLET.DR PO SCH (06:33)
--- NOTE | 2023-02-02 06:50 | NUR ---
RN NOTE/NOC: Received report from FEED MILL MANAGERORLANDO Allen at about 8:30PM and subsequently admitted 82 y/o female pt under care of provider Chrystal. Pt slept intermittently throughout night. Pt. has no c/o pain at this time. Pt notified me of elevated Troponin level. Providers Chrystal and Josefina were thereafter notified. Pt. tolerated all Meds administered well.
[2023-02-02 07:11] LABS: MEAN CORPUSCULAR HEMOGLOBIN 30.9 uug (24.7-32.8); MEAN CORPUSCULAR VOLUME 92.1 fL (75.5-95.3); PLATELET COUNT (AUTO) 212 K/uL (179-408)
[2023-02-02 07:47] LABS: CARBON DIOXIDE 31 mmol/L (21-32); CHLORIDE 102 mmol/L (98-107); CHOLESTEROL 109 mg/dL (<200); CREATININE 1.6 mg/dL (0.6-1.3); HDL CHOLESTEROL 43 mg/dL (40-60); MAGNESIUM 1.8 mg/dL (1.8-2.4); TRIGLYCERIDES 125 MG/DL (30-150); UREA NITROGEN, BLOOD 46 mg/dL (7-18)
[2023-02-02 07:56] LABS: POTASSIUM 2.8 mmol/L (3.5-5.1)
[2023-02-02 07:58] LABS: THYROID STIMULATING HORMONE 1.216 mIU/mL (0.358-3.740)
[2023-02-02] MEDS ORDERED: HEPARIN SODIUM,PORCINE 5,000 UNITS/ML VIAL IV PRN ×2 (08:00→08:15)
--- NOTE | 2023-02-02 08:00 | NUR ---
Received patient lying in bed awake, alert, and confused. No acute signs of distress, no SOB. IV catheter at right forearm g.20 intact. Vital signs taken and recorded. Received a call from laboratory reported critical lab value for Troponin-742, K-2.8, Bun-46, informed Dr. Jarrell. Patient started to get anxious and agitated refusing medications. Started IVF LR @ 120ml/hr, Heparin 5,600units bolus IV given as ordered and Heparin drip IV infusion given. Patient still agitated and restless, kicking out. Applied soft wrist restraint on both arms. Olanzapine 10mg IM given once. Due IV medications given. Seen and examined by Dr. Coleman psychiatrist and Dr. Jarrell with orders made and carried out. Keep patient monitored and safety measures.
[2023-02-02] MEDS: HEPARIN/D5W DRIP 500 ML IV PRN (08:34)
[2023-02-02] MEDS: METOPROLOL TARTRATE 25 MG TABLET PO SCH ×2 (09:00→20:45)
[2023-02-02] MEDS: GABAPENTIN 300 MG CAPSULE PO SCH ×2 (09:00→16:41)
[2023-02-02] MEDS: CYANOCOBALAMIN 1,000 MCG TABLET PO SCH (09:00)
[2023-02-02] MEDS: CELECOXIB 200 MG CAPSULE PO SCH ×2 (09:00→16:41)
[2023-02-02] MEDS: CHOLECALCIFEROL 1,000 UNIT TABLET PO SCH (09:00)
[2023-02-02] MEDS ORDERED: FLUOXETINE HCL 20 MG CAPSULE PO SCH ×2 (09:00→17:00)
[2023-02-02] MEDS: ASPIRIN EC 81 MG TABLET.DR PO SCH (09:00)
[2023-02-02] MEDS: ASCORBIC ACID 500 MG TABLET PO SCH (09:00)
[2023-02-02] MEDS: IV LACTATED RINGERS SOLUTION 1,000 ML IV SCH ×2 (09:45→16:43)
[2023-02-02] MEDS: POTASSIUM CHLORIDE 50 ML IV SCH ×5 (09:54→13:41)
[2023-02-02] MEDS: OLANZAPINE 10 MG VIAL IM PRN (09:59)
[2023-02-02] MEDS ORDERED: OLANZAPINE 10 MG VIAL IM ONE (10:15)
[2023-02-02] MEDS ORDERED: OLANZAPINE ZYDIS 5 MG TAB.RAPDIS PO PRN (10:30)
[2023-02-02] MEDS ORDERED: POTASSIUM CHLORIDE 20 MEQ TAB.PRT.SR PO ONE (11:00)
[2023-02-02] MEDS: DIVALPROEX SPRINKLE 125 MG CAP.SPRINK PO SCH ×3 (11:32→16:40)
[2023-02-02] MEDS: OLANZAPINE ZYDIS 5 MG TAB.RAPDIS PO SCH ×2 (11:32→16:41)
--- NOTE | 2023-02-02 15:25 | NUR ---
Received a call from laboratory repeat PTT after 6 hours of heparin drip, [id number] called pharmacist and hold heparin for 1 hour. Monitored patient accordingly, attended
--- NOTE | 2023-02-02 17:00 | NUR ---
Resumed Heparin drip at 1,050 units/hr = 21ml/hr per protocol Ordered repeat PTT after 6 hours due at 2300H
[2023-02-02] MEDS: ATORVASTATIN 20 MG TABLET PO SCH (21:03)
[2023-02-03] VITALS: BP 96/69; TEMP 98.2; O2SAT 96
[2023-02-03] MEDS: IV LACTATED RINGERS SOLUTION 1,000 ML IV SCH (02:34)
[2023-02-03 05:19] VITALS: BP 120/55; TEMP 97.4; O2SAT 95
[2023-02-03] MEDS: LEVOTHYROXINE SODIUM 100 MCG TABLET PO SCH (06:28)
[2023-02-03] MEDS: PANTOPRAZOLE SODIUM 40 MG TABLET.DR PO SCH (06:28)
[2023-02-03] MEDS: HEPARIN/D5W DRIP 500 ML IV PRN (06:29)
[2023-02-03 06:55] LABS: MEAN CORPUSCULAR HEMOGLOBIN 30.6 uug (24.7-32.8); MEAN CORPUSCULAR VOLUME 93.3 fL (75.5-95.3); PLATELET COUNT (AUTO) 171 K/uL (179-408)
[2023-02-03 07:22] LABS: CARBON DIOXIDE 31 mmol/L (21-32); CHLORIDE 109 mmol/L (98-107); CREATININE 1.2 mg/dL (0.6-1.3); MAGNESIUM 1.9 mg/dL (1.8-2.4); PHOSPHOROUS 3.1 mg/dL (2.5-4.9); POTASSIUM 3.8 mmol/L (3.5-5.1); UREA NITROGEN, BLOOD 30 mg/dL (7-18)
--- NOTE | 2023-02-03 07:30 | NUR ---
PATIENT IS ALERT WITH DISORIENTATION NEEDING FREQUENT REDIRECTION SHE HAS BILATERAL WRIST RESTRAINTS CIRCULATION CHECKED Q2H AND RELEASED TURNED AND REPOSITIONED Q2H CURRENTLY ON HEPARIN DRIP AT 850 UNITS PER HOUR WITH NO S/S OF BLEEDING AT THIS TIME TELE IS SR MADE COMFORTABLE WILL CONTINUE TO OBSERVE.
--- NOTE | 2023-02-03 07:30 | NUR ---
REPORT GIVEN TO DAY RN
--- NOTE | 2023-02-03 08:00 | NUR ---
PTT LEVEL IS 59.7 PER LAB NO CHANGE AT THIS TIME CONTINUE WITH HEPARIN DRIP AT 850 ML/HR ORDERED WILL CHECK PTT LEVEL AT 0600 TOMORROW.
[2023-02-03] MEDS: METOPROLOL TARTRATE 25 MG TABLET PO SCH ×2 (09:00→20:28)
[2023-02-03] MEDS: ASPIRIN EC 81 MG TABLET.DR PO SCH (09:20)
[2023-02-03] MEDS: CELECOXIB 200 MG CAPSULE PO SCH ×2 (09:20→17:07)
[2023-02-03] MEDS: CHOLECALCIFEROL 1,000 UNIT TABLET PO SCH (09:20)
[2023-02-03] MEDS: DIVALPROEX SPRINKLE 125 MG CAP.SPRINK PO SCH ×3 (09:20→17:08)
[2023-02-03] MEDS: OLANZAPINE ZYDIS 5 MG TAB.RAPDIS PO SCH ×2 (09:20→17:07)
[2023-02-03] MEDS: GABAPENTIN 300 MG CAPSULE PO SCH ×2 (09:20→17:07)
[2023-02-03] MEDS: ASCORBIC ACID 500 MG TABLET PO SCH (09:21)
[2023-02-03] MEDS: FLUOXETINE HCL 20 MG CAPSULE PO SCH (09:21)
[2023-02-03] MEDS: CYANOCOBALAMIN 1,000 MCG TABLET PO SCH (09:21)
[2023-02-03 11:46] VITALS: BP 93/46; TEMP 98; O2SAT 98
--- NOTE | 2023-02-03 12:23 | NUR ---
PATIENT SEEN BY DR CLEMENTINE KENT WITH NEW ORDERS AND NOTED PATIENT TO HAVE CT ANGIO HEART WILL NEED A MIDLINE ALSO ORDER TO DISCONTINUE HEPARIN AND NOTED
[2023-02-03] MEDS ORDERED: ENOXAPARIN SODIUM 80 MG/0.8 ML DISP.SYRIN SQ SCH (12:30)
[2023-02-03] MEDS: IV 1/2NS 1000 ML 1,000 ML IV PRN (12:37)
--- NOTE | 2023-02-03 15:03 | NUR ---
PATIENT IS FOR CT A HEART AND NEEDED MIDLINE DR CLEMENTINE KENT AWARE WITH ORDER.MID LINE INSERTED TO HER RIGHT UPPER ARM GAUGE 18.PATIENTS DENISSE JIMENEZ AWARE OF THE IMPENDING PROCEDURE.
[2023-02-03 16:00] VITALS: BP 91/49; TEMP 98.7; O2SAT 97
[2023-02-03 17:57] VITALS: O2SAT 97
--- NOTE | 2023-02-03 18:00 | NUR ---
MID LINE ORDERED AND INSERTED TO HER RIGHT UPPER ARM GAUGE 18.
[2023-02-03 20:00] VITALS: BP 92/42; TEMP 97.5; O2SAT 94
[2023-02-03] MEDS ORDERED: ENOXAPARIN SODIUM 60 MG/0.6 ML DISP.SYRIN SQ SCH (21:00)
[2023-02-03] MEDS: ATORVASTATIN 20 MG TABLET PO SCH (21:00)
[2023-02-03] MEDS: REMEDY ESSENTIAL ZINC PASTE 113 GM TOP SCH (21:00)
[2023-02-04] VITALS (7 sets, daily range): BP systolic 91–131; BP diastolic 38–72; TEMP 97.5–99; O2SAT 92–98
[2023-02-04] MEDS: IV 1/2NS 1000 ML 1,000 ML IV PRN ×2 (01:00→14:50)
[2023-02-04 06:21] LABS: HEMATOCRIT 36.4 % (31.2-41.9); MEAN CORPUSCULAR HEMOGLOBIN 30.7 uug (24.7-32.8); MEAN CORPUSCULAR VOLUME 93.6 fL (75.5-95.3); PLATELET COUNT (AUTO) 157 K/uL (179-408)
[2023-02-04 06:50] LABS: CARBON DIOXIDE 30 mmol/L (21-32); CHLORIDE 109 mmol/L (98-107); CREATININE 0.9 mg/dL (0.6-1.3); MAGNESIUM 1.8 mg/dL (1.8-2.4); UREA NITROGEN, BLOOD 19 mg/dL (7-18)
[2023-02-04] MEDS: LEVOTHYROXINE SODIUM 100 MCG TABLET PO SCH (06:51)
[2023-02-04] MEDS: PANTOPRAZOLE SODIUM 40 MG TABLET.DR PO SCH (06:51)
[2023-02-04] MEDS: ASPIRIN EC 81 MG TABLET.DR PO SCH (08:51)
[2023-02-04] MEDS: GABAPENTIN 300 MG CAPSULE PO SCH ×2 (08:51→17:03)
[2023-02-04] MEDS: CHOLECALCIFEROL 1,000 UNIT TABLET PO SCH (08:51)
[2023-02-04] MEDS: DIVALPROEX SPRINKLE 125 MG CAP.SPRINK PO SCH ×3 (08:51→17:03)
[2023-02-04] MEDS: ASCORBIC ACID 500 MG TABLET PO SCH (08:51)
[2023-02-04] MEDS: FLUOXETINE HCL 20 MG CAPSULE PO SCH (08:52)
[2023-02-04] MEDS: REMEDY ESSENTIAL ZINC PASTE 113 GM TOP SCH ×2 (08:52→20:47)
[2023-02-04] MEDS: OLANZAPINE ZYDIS 5 MG TAB.RAPDIS PO SCH ×2 (08:52→17:03)
[2023-02-04] MEDS: CYANOCOBALAMIN 1,000 MCG TABLET PO SCH (08:52)
[2023-02-04] MEDS: METOPROLOL TARTRATE 25 MG TABLET PO SCH ×2 (09:00→20:47)
[2023-02-04] MEDS: ENOXAPARIN SODIUM 40 MG/0.4 ML DISP.SYRIN SQ SCH (09:29)
[2023-02-04] MEDS: CELECOXIB 200 MG CAPSULE PO SCH ×2 (09:30→17:02)
--- NOTE | 2023-02-04 10:01 | NUR ---
PATIENT SON AT THE BEDSIDE PATIENT IS ALERT BUT IS CONFUSED RESTLESS NA HYPERVOCAL PATIENTS SON STATED THAT SHE LACKS SLEEP AND WANTS PATIENT TO HAVE A SEDATIVE BUT I TOLD HIM THAT PATIENT CANNOT BE GIVEN A SEDATIVE AT THIS TIME SO I GAVE HER A VALIUM TO ATTEMPT TO CALM HER DOWN AND MAYBE GET SOME SLEEP DR GLOVER HERE SEEN PATIENT WITH NO NEW ORDERS AT THIS TIME.WILL CONTINUE TO OBSERVE.
--- NOTE | 2023-02-04 18:00 | NUR ---
AWAKE UNCOOPERATIVE AT TIMES DISORIENTED AT TIMES ALL NEEDS ANTICIPATED CONTINUES TO NEED MISA WRIST RESTRAINTS PATIENT IS DIFFICULT TO PREDICT RELEASED AND REPOSITIONED Q2H WILL CONTINUE TO OBSERVE.
[2023-02-04] MEDS: ATORVASTATIN 20 MG TABLET PO SCH (20:47)
--- NOTE | 2023-02-04 21:00 | NUR ---
pt remains uncooperative and while off restraints, she keeps pulling lines and tele leads; pt also kicks and spits on staff;
[2023-02-04] MEDS: OLANZAPINE 10 MG VIAL IM PRN (23:52)
[2023-02-05 00:09] VITALS: O2SAT 97
[2023-02-05 00:10] VITALS: BP 110/74; TEMP 98.2; O2SAT 93
[2023-02-05] MEDS: IV 1/2NS 1000 ML 1,000 ML IV PRN ×2 (03:57→18:20)
[2023-02-05 04:00] VITALS: BP 148/91; TEMP 98.4; O2SAT 93
--- NOTE | 2023-02-05 04:35 | NUR ---
Pt slept for 4 hours after given Zyprexa IM for severe agitation; pt now awake and agitated, zyprexa zydis given orally
[2023-02-05] MEDS: PANTOPRAZOLE SODIUM 40 MG TABLET.DR PO SCH (06:14)
[2023-02-05] MEDS: LEVOTHYROXINE SODIUM 100 MCG TABLET PO SCH (06:14)
[2023-02-05 06:39] LABS: HEMATOCRIT 35.1 % (31.2-41.9); MEAN CORPUSCULAR HEMOGLOBIN 30.6 uug (24.7-32.8); MEAN CORPUSCULAR VOLUME 92.4 fL (75.5-95.3); PLATELET COUNT (AUTO) 156 K/uL (179-408)
[2023-02-05 06:58] LABS: BILIRUBIN,TOTAL 0.8 mg/dL (0.2-1.0); CREATININE 0.7 mg/dL (0.6-1.3); POTASSIUM 3.5 mmol/L (3.5-5.1); TOTAL PROTEIN, SERUM 5.8 g/dL (6.4-8.2)
--- NOTE | 2023-02-05 07:26 | NUR ---
RECEIVED PATIENT IN BED AWAKE ALERT TO SELF ONLY CONFUSED AND DISORIENTED TALKING TO SELF AND RESPONDING TO SELF SHE IS INCOHERENT ON O2 AT 2L/M BY NASAL CANULA WITH NO SOB AT THIS TIME PATIENT IS NPO PENDING CTA ANGIO HEART ORDERED AWAITING FOR TIME FOR CARPET INSPECTOR.CONTINUE TO BE ON BILATERAL WRIST RESTRAINTS PATIENT IS STILL UNCOOPERATIVE PULLING AND AT RISKS FOR INJURIES RELATED TO PULLING OUT TUBES.IVF IN PROGRESS ORDERED WITH NO S/S OF INFILTERATION ON SITE MADE COMFORTABLE WILL CONTINUE TO OBSERVE.
[2023-02-05 07:55] LABS: MAGNESIUM 1.7 mg/dL (1.8-2.4); PHOSPHOROUS 2.2 mg/dL (2.5-4.9)
[2023-02-05] MEDS: CELECOXIB 200 MG CAPSULE PO SCH (08:10)
[2023-02-05] MEDS: DIVALPROEX SPRINKLE 125 MG CAP.SPRINK PO SCH ×3 (08:10→17:00)
[2023-02-05] MEDS: GABAPENTIN 300 MG CAPSULE PO SCH ×2 (08:11→17:00)
[2023-02-05] MEDS: CYANOCOBALAMIN 1,000 MCG TABLET PO SCH (08:11)
[2023-02-05] MEDS: ASPIRIN EC 81 MG TABLET.DR PO SCH (08:11)
[2023-02-05] MEDS: METOPROLOL TARTRATE 25 MG TABLET PO SCH ×2 (08:11→21:00)
[2023-02-05] MEDS: FLUOXETINE HCL 20 MG CAPSULE PO SCH (08:11)
[2023-02-05] MEDS: OLANZAPINE ZYDIS 5 MG TAB.RAPDIS PO SCH ×2 (08:12→17:00)
[2023-02-05] MEDS: CHOLECALCIFEROL 1,000 UNIT TABLET PO SCH (08:12)
[2023-02-05] MEDS: ASCORBIC ACID 500 MG TABLET PO SCH (08:12)
[2023-02-05] MEDS ORDERED: MAGNESIUM OXIDE 400 MG TABLET PO ONE (09:15)
[2023-02-05] MEDS: REMEDY ESSENTIAL ZINC PASTE 113 GM TOP SCH ×2 (09:26→21:14)
[2023-02-05] MEDS: ENOXAPARIN SODIUM 40 MG/0.4 ML DISP.SYRIN SQ SCH (09:27)
[2023-02-05 11:01] VITALS: BP 92/68; TEMP 98.3; O2SAT 93
[2023-02-05] MEDS: OLANZAPINE 10 MG VIAL IM PRN (11:23)
--- NOTE | 2023-02-05 11:23 | NUR ---
VERY AGITATED RESTLESS YELLING AT THE TOP OF HER VOICE TALKING INCESSANTLY HYPERVOCAL INAPPROPRIATELY TALKING AND RESPONDING USING LOTS OF FOUL LANGUAGES PULLING AND TUGGING ON HER RESTRAINTS UNABLE TO REDIRECT OR CALM HER SO PATIENT MEDICATED WITH ZYPREXA IM ORDERED WILL CONTINUE TO OBSERVE.
--- NOTE | 2023-02-05 12:05 | NUR ---
PATIENT SEEN BY THE SPEECH AND LANGUAGE THERAPIST WITH DIET CHANGED TO PUREED WITH NECTAR THICK LIQUIDS DIETARY NOTIFIED.
[2023-02-05] MEDS ORDERED: NEUTRA PHOS PACKET PO ONE (16:00)
--- NOTE | 2023-02-05 16:00 | NUR ---
CONTINUES TO TALK INCESSANTLY YELLING OUT AT TIMES ATTEMPT TO GIVE HER ORAL MEDS TO CALM HER DOWN FAILED WILL SPIT AT THE NURSE VERY DIFFICULT TO CONTROL CALLED AND LEFT A MESSAGE FOR DR CLEMENTINE KENT RE PATIENT NEEDS MORE IM OR IV MEDS TO CONTROL HER BEHAVIOR LEFT HIM A MESSAGE.
[2023-02-05 16:50] VITALS: BP 150/76; TEMP 97.9; O2SAT 94
--- NOTE | 2023-02-05 18:32 | NUR ---
QUIETER AT THIS TIME VERY CONFUSED AND DISORIENTED HER MID LINE IS RESISTANT TO FLUSHING SO I INSERTED A PERIPHERAL LINE RIGHT WRIST AND IVF CONTINUED ORDERED.
[2023-02-05 19:53] VITALS: BP 137/64; TEMP 98.2; O2SAT 94
[2023-02-05] MEDS: ATORVASTATIN 20 MG TABLET PO SCH (21:00)
[2023-02-06] VITALS (8 sets, daily range): BP systolic 122–142; BP diastolic 54–74; TEMP 97.6–98.7; O2SAT 92–98
[2023-02-06] MEDS: OLANZAPINE 10 MG VIAL IM PRN (03:53)
[2023-02-06] MEDS: PANTOPRAZOLE SODIUM 40 MG TABLET.DR PO SCH (06:36)
[2023-02-06] MEDS: LEVOTHYROXINE SODIUM 100 MCG TABLET PO SCH (06:36)
[2023-02-06] MEDS: IV 1/2NS 1000 ML 1,000 ML IV PRN ×2 (06:42→06:45)
[2023-02-06 07:02] LABS: CREATININE 0.7 mg/dL (0.6-1.3); MAGNESIUM 1.8 mg/dL (1.8-2.4); PHOSPHOROUS 2.7 mg/dL (2.5-4.9); POTASSIUM 3.5 mmol/L (3.5-5.1)
--- NOTE | 2023-02-06 07:30 | NUR ---
RECEIVED PATIENT IN BED AWAKE CONFUSED DISORIENTED QUIETER BUT STILL HAVING A CONVERSATION WITH SELF AND RESPONDING BUT LESS FREQUENT AT THIS TIME ON O2 AT 2L/M BY NASAL CANULA WITH NO SOB AT THIS TIME.HE HAS BILATERAL WRIST RESTRAINTS FOR SAFETY CHECKED AND RELEASED FOR ADEQUATE CIRCULATION REPOSITIONED FOR COMFORT MADE COMFORTABLE WILL CONTINUE TO OBSERVE.
[2023-02-06] MEDS: ASCORBIC ACID 500 MG TABLET PO SCH (09:00)
[2023-02-06] MEDS: CYANOCOBALAMIN 1,000 MCG TABLET PO SCH (09:00)
[2023-02-06] MEDS: ASPIRIN EC 81 MG TABLET.DR PO SCH (09:00)
[2023-02-06] MEDS: FLUOXETINE HCL 20 MG CAPSULE PO SCH (09:00)
[2023-02-06] MEDS: CHOLECALCIFEROL 1,000 UNIT TABLET PO SCH (09:00)
[2023-02-06] MEDS: METOPROLOL TARTRATE 25 MG TABLET PO SCH ×2 (09:00→21:54)
[2023-02-06] MEDS: DIVALPROEX SPRINKLE 125 MG CAP.SPRINK PO SCH ×3 (09:00→17:16)
[2023-02-06] MEDS: ENOXAPARIN SODIUM 40 MG/0.4 ML DISP.SYRIN SQ SCH (09:00)
[2023-02-06] MEDS: OLANZAPINE ZYDIS 5 MG TAB.RAPDIS PO SCH ×2 (09:01→17:16)
[2023-02-06] MEDS: GABAPENTIN 300 MG CAPSULE PO SCH ×2 (09:01→17:16)
[2023-02-06] MEDS: REMEDY ESSENTIAL ZINC PASTE 113 GM TOP SCH ×2 (09:02→21:54)
--- NOTE | 2023-02-06 10:00 | NUR ---
PATIENT WAS ABLE TO TAKE SOME OF HER MEDICATIONS REFUSED MOST OF THEM BUT WAS ABLE TO GIVE HER THE DEPAKOTE,ZYPREXA AND NEURONTIN REFUSED THE REST.
--- NOTE | 2023-02-06 17:17 | NUR ---
PATIENT MORE ALERT COOPERATIVE TOOK ALL DUE MEDICATIONS DR COLBY HERE AND SEEN PATIENT STATED TO REMOVE MIRZA ON LEFT UPPER CHEST WILL ASSESS.
--- NOTE | 2023-02-06 17:33 | NUR ---
DR COLBY STATED TO REMOVE STITCHES ON PATIENTS LEFT UPPER CHEST EXPLAINED THIS TO HER AND SHE STATED ABSOLUTELY NOT TO TOUCH IT MESSAGE SENT TO DR COLBY
--- NOTE | 2023-02-06 17:37 | NUR ---
MENTAL HEALTH NOTIFIED RE PSYCH CONSULT FOR THIS PATIENT WITH DR ROQUE
[2023-02-06] MEDS: ATORVASTATIN 20 MG TABLET PO SCH (21:53)
[2023-02-07] MEDS: IV 1/2NS 1000 ML 1,000 ML IV PRN (01:02)
[2023-02-07 04:16] VITALS: BP 137/64; TEMP 98.2; O2SAT 94
[2023-02-07] MEDS: LEVOTHYROXINE SODIUM 100 MCG TABLET PO SCH (06:58)
[2023-02-07] MEDS: PANTOPRAZOLE SODIUM 40 MG TABLET.DR PO SCH (06:58)
[2023-02-07 07:10] LABS: HEMATOCRIT 36.2 % (31.2-41.9); MEAN CORPUSCULAR HEMOGLOBIN 30.4 uug (24.7-32.8); MEAN CORPUSCULAR VOLUME 93.1 fL (75.5-95.3); PLATELET COUNT (AUTO) 156 K/uL (179-408)
[2023-02-07 07:45] LABS: BILIRUBIN,TOTAL 0.6 mg/dL (0.2-1.0); CREATININE 0.7 mg/dL (0.6-1.3); PHOSPHOROUS 3.4 mg/dL (2.5-4.9); POTASSIUM 3.1 mmol/L (3.5-5.1); TOTAL PROTEIN, SERUM 5.7 g/dL (6.4-8.2)
[2023-02-07] MEDS: GABAPENTIN 300 MG CAPSULE PO SCH ×2 (08:21→17:11)
[2023-02-07] MEDS: DIVALPROEX SPRINKLE 125 MG CAP.SPRINK PO SCH ×3 (08:22→17:11)
[2023-02-07] MEDS: CYANOCOBALAMIN 1,000 MCG TABLET PO SCH (08:22)
[2023-02-07] MEDS: CHOLECALCIFEROL 1,000 UNIT TABLET PO SCH (08:22)
[2023-02-07] MEDS: ASCORBIC ACID 500 MG TABLET PO SCH (08:22)
[2023-02-07] MEDS: FLUOXETINE HCL 20 MG CAPSULE PO SCH (08:22)
[2023-02-07] MEDS: ASPIRIN EC 81 MG TABLET.DR PO SCH (08:22)
[2023-02-07] MEDS: METOPROLOL TARTRATE 25 MG TABLET PO SCH ×3 (08:23→20:45)
[2023-02-07] MEDS: OLANZAPINE ZYDIS 5 MG TAB.RAPDIS PO SCH ×2 (08:24→17:11)
[2023-02-07] MEDS: ENOXAPARIN SODIUM 40 MG/0.4 ML DISP.SYRIN SQ SCH (08:25)
[2023-02-07] MEDS: REMEDY ESSENTIAL ZINC PASTE 113 GM TOP SCH ×2 (08:25→20:48)
[2023-02-07] MEDS ORDERED: POTASSIUM CHLORIDE 20 MEQ TAB.PRT.SR PO ONE (09:00)
[2023-02-07] MEDS: PROTEIN SUPPLEMENT (PROSTAT) 30 ML LIQUID PO SCH (09:17)
[2023-02-07] MEDS ORDERED: LORAZEPAM 0.5 MG TABLET PO PRN (09:45)
--- NOTE | 2023-02-07 10:16 | NUR ---
0730-Rec'd patient in bed, awake, alert and oriented. Patient able to verbalize her needs. Bilateral hands soft wrist restraints in place, no circulation impairment noted. Patient in no apparent respiratory distress, denies pain. HOB elevated, JULIANE ML infusing well with site intact and IVF hydration in progress. Call light at reach and safety measures in place. 0900-Scheduled medications administered and taken well, no swallowing problems observed. Oral fluids encouraged as justen and taken well. Patient was seen by Dr. Mae (psychiatrist) with psychotropic medication changes please (see orders/and changes). 1000-Patient was seen by rehab PT and per PT input patient will benefit from PT services, follows commands and participates in therapy, will initiate therapy services.
[2023-02-07 11:09] VITALS: BP 104/43; TEMP 98.5; O2SAT 90
[2023-02-07 11:36] LABS: MAGNESIUM 2.1 mg/dL (1.8-2.4)
[2023-02-07 15:07] VITALS: BP 100/50; TEMP 98.2; O2SAT 100
[2023-02-07 15:40] VITALS: O2SAT 98
--- NOTE | 2023-02-07 19:10 | NUR ---
Patient continues with pending discharge, per ([place]) patient's son was provided with a list as options for SNF a SNF selection to consider. Dr. Foster aware. Patient refused to DC sutures on her SEPIDEH wall. Dr. Foster aware as well. Assisted patient with ADLs in general/personal care/hygiene/turning and repositioning during care. Patient calm and cooperative with care, although did refused suture removal risks vs benefits were explained & wishes and choices respected. Medications administered as scheduled through out the day with no ASE noted. Patient does requires of one persons' physical assist to set up meal tray and to be fed. Aspiration precautions strictly observed, no s/s of coughing or congestion noted. Care provided at routine intervals and as needed. All needs attended well and met. Routine rounds and frequent visual checks done. Endorsed properly to relieving NOC shift RN.
[2023-02-07 20:00] VITALS: BP 108/60; TEMP 98; O2SAT 93
[2023-02-07] MEDS: ATORVASTATIN 20 MG TABLET PO SCH (20:54)
[2023-02-07 23:18] VITALS: O2SAT 98
--- NOTE | 2023-02-08 01:54 | NUR ---
Pt.has been asleep intermittently so far tonight. Pt.has been confused,disoriented,uncooperative,has labile mood and easily irritable. Bedtime PO meds.refused last night despite numerous attempts by staff. Fall precautions in place. Reality re-orientation provided. Denies pain nor any form of discomfort. Incontinence care provided. Denies SOB.
[2023-02-08 04:00] VITALS: BP 129/55; TEMP 98.2; O2SAT 93
[2023-02-08] MEDS: LEVOTHYROXINE SODIUM 100 MCG TABLET PO SCH (06:08)
[2023-02-08] MEDS: PANTOPRAZOLE SODIUM 40 MG TABLET.DR PO SCH (06:08)
--- NOTE | 2023-02-08 06:55 | NUR ---
pt received in bed awake talking no making seances,reorient the pt to place and date and time
[2023-02-08] MEDS: CYANOCOBALAMIN 1,000 MCG TABLET PO SCH (07:55)
[2023-02-08] MEDS: DIVALPROEX SPRINKLE 125 MG CAP.SPRINK PO SCH ×2 (07:55→13:00)
[2023-02-08] MEDS: OLANZAPINE ZYDIS 5 MG TAB.RAPDIS PO SCH (07:55)
[2023-02-08] MEDS: ASPIRIN EC 81 MG TABLET.DR PO SCH (07:56)
[2023-02-08] MEDS: GABAPENTIN 300 MG CAPSULE PO SCH (07:56)
[2023-02-08] MEDS: METOPROLOL TARTRATE 25 MG TABLET PO SCH (07:56)
[2023-02-08] MEDS: PROTEIN SUPPLEMENT (PROSTAT) 30 ML LIQUID PO SCH (08:00)
[2023-02-08] MEDS: ASCORBIC ACID 500 MG TABLET PO SCH (08:09)
[2023-02-08] MEDS: CHOLECALCIFEROL 1,000 UNIT TABLET PO SCH (08:09)
[2023-02-08] MEDS: ENOXAPARIN SODIUM 40 MG/0.4 ML DISP.SYRIN SQ SCH (08:11)
[2023-02-08] MEDS: REMEDY ESSENTIAL ZINC PASTE 113 GM TOP SCH (08:12)
[2023-02-08 11:28] VITALS: BP 122/42; TEMP 98.4; O2SAT 94
[2023-02-08] MEDS ORDERED: LORA0.5T48 PO (12:13)
[2023-02-08] MEDS ORDERED: ACET325T53 PO (12:13)
[2023-02-08] MEDS ORDERED: PROT30LI PO (12:13)
[2023-02-08] MEDS ORDERED: ASPI-618 PO (12:13)
[2023-02-08] MEDS ORDERED: PANT40TA49 PO (12:13)
[2023-02-08] MEDS ORDERED: DIVA125C2 PO (12:13)
[2023-02-08] MEDS ORDERED: OLAN5TAB6 PO (12:13)
[2023-02-08] MEDS ORDERED: METO25TA6 PO (12:13)
[2023-02-08] MEDS ORDERED: ENOX40DI SQ (12:13)
[2023-02-08] MEDS ORDERED: OLANZAPINE 10 MG VIAL IM ONE (13:30)
--- NOTE | 2023-02-08 14:55 | NUR ---
pt is so combative and verbally abusive hitting with the legs ,pt refused to take the wound picture charge nurse sherie soria made aware
--- NOTE | 2023-02-08 16:10 | NUR ---
dc orders received noted and carried out,dc heplock per md orders,rn report given to the snf,pt left the facility via ambulances in stable condition
== END 2023-02-08 16:14 | DRG 682 ==
LOC: ER 16:20 → MEDSURG3 19:55 → TELE3 23:04 → MEDSURG3 02-06 12:02
PROVIDERS: ADMIT Nurse Practitioner Acute Care; ATTEND Internal Medicine
PROC: 05H533Z Insertion of Infusion Device into Right Subclavian Vein, Percutaneous Approach (ICD-10-PCS; principal; 2023-02-03)
PROC: B546ZZA Ultrasonography of Right Subclavian Vein, Guidance (ICD-10-PCS; 2023-02-03)
DX: N17.0 Acute kidney failure with tubular necrosis (principal); G92.8 Other toxic encephalopathy; I21.A1 Myocardial infarction type 2; D68.69 Other thrombophilia; E87.0 Hyperosmolality and hypernatremia; J96.11 Chronic respiratory failure with hypoxia; F03.92 Unspecified dementia, unspecified severity, with psychotic disturbance; I50.42 Chronic combined systolic (congestive) and diastolic (congestive) heart failure; F03.93 Unspecified dementia, unspecified severity, with mood disturbance; F03.918 Unspecified dementia, unspecified severity, with other behavioral disturbance; E03.9 Hypothyroidism, unspecified; E78.5 Hyperlipidemia, unspecified; E86.0 Dehydration; E87.6 Hypokalemia; E88.09 Other disorders of plasma-protein metabolism, not elsewhere classified; G47.00 Insomnia, unspecified; G62.9 Polyneuropathy, unspecified; I25.10 Atherosclerotic heart disease of native coronary artery without angina pectoris; J44.9 Chronic obstructive pulmonary disease, unspecified; Z87.442 Personal history of urinary calculi; Z87.440 Personal history of urinary (tract) infections; Z79.82 Long term (current) use of aspirin; E80.6 Other disorders of bilirubin metabolism; Z85.038 Personal history of other malignant neoplasm of large intestine; Z90.49 Acquired absence of other specified parts of digestive tract; Z99.81 Dependence on supplemental oxygen; M19.90 Unspecified osteoarthritis, unspecified site; N20.0 Calculus of kidney; F29 Unspecified psychosis not due to a substance or known physiological condition; F39 Unspecified mood [affective] disorder; Z74.09 Other reduced mobility; R53.1 Weakness; E80.4 Gilbert syndrome
CPT/HCPCS: 36415; 70450; 71045; 83735; 84100; 84443; 84484; 85025; 85730; 93307; A6209; A6213; C1758; G0378; G0480; J1630; J1644; J1650; J2060; J2358; J3480; J7120

== ENCOUNTER 2025-03-16 11:06 | Emergency (ER) | payer MEDICARE, BC ==
[~2025-03-16] VITALS: Ht 162.6 cm; Wt 68.0 kg
[~2025-03-16 11:06] MED LIST changes: +ACET325T53 PO; -ASPI-1100 PO; +ASPI-618 PO; -BISM262T15 PO; -CELE200C PO; -DIAZ5TAB PO; -DIPH1TAB PO; +DIVA125C2 PO; +ENOX40DI SQ; -FLUO20CA36 PO; +FURO20TA4 PO; +HYDR-501 PO; -LACT1CAP69 PO; +LORA0.5T48 PO; +METO25TA6 PO; -MOME15OI2 TP; +OLAN5TAB6 PO; -PANT40TA2 PO; +PANT40TA49 PO; +PROT30LI PO; -ROSU10TA2 PO; -SENN-18 PO; -ZINC50TA69 PO; -ZOLP10TA2 PO
[2025-03-16 11:08] VITALS: BP 125/69
[2025-03-16 11:51] LABS: PLATELET COUNT (AUTO) 207 K/uL (179-408); RED BLOOD CELL COUNT(AUTO) 4.03 MIL/uL (3.63-4.92); RED CELL DISTRIBUTION WIDTH 13.5 % (12.3-17.7); WHITE BLOOD COUNT (AUTO) 4.7 K/uL (3.8-11.8)
[2025-03-16 11:56] LABS: CREATININE 0.5 mg/dL (0.6-1.3); SODIUM SERUM 148 mmol/L (136-145); UREA NITROGEN, BLOOD 12 mg/dL (7-18)
[2025-03-16 12:27] LABS: *BILIRUBIN,URIN NEGATIVE (NEGATIVE); *BLOOD, URINE NEGATIVE (NEGATIVE); *CLARITY,URINE CLEAR (CLEAR); *COLOR,URINE YELLOW (YELLOW); *KETONES,URINE NEGATIVE (NEGATIVE); *PROTEIN,URINE NEGATIVE (NEGATIVE); *UROBILINOGEN,URINE 0.2 E.U./dl (NORMAL); LEUKOCYTE ESTERASE ,URINE TRACE (NEGATIVE); NITRITE, URINE NEGATIVE (NEGATIVE); UGLUCOSE NEGATIVE (NEGATIVE)
[2025-03-16 12:34] LABS: URINE AMORPHOUS URATE FEW /HPF
[2025-03-16] MEDS ORDERED: CEFTRIAXONE /D5W 50ML IVPB **ER PYXIS IV ONE (13:50)
[2025-03-16] MEDS ORDERED: CYANOCOBALAMIN 1000 MCG/ML VIAL ONE (13:53)
[2025-03-16] MEDS ORDERED: SYRI-29 MC (13:56)
[2025-03-16] MEDS ORDERED: CYAN10006 IM (13:56)
[2025-03-16] MEDS ORDERED: CEFD300C3 PO (13:56)
[2025-03-16] MEDS: CYANOCOBALAMIN 1000 MCG/ML VIAL IM ONE (13:59)
[2025-03-16 14:50] VITALS: BP 113/66; O2SAT 96
== END 2025-03-16 14:50 | disposition home or self-care (01) ==
LOC: ER 11:06
DX: S43.101A Unspecified dislocation of right acromioclavicular joint, initial encounter (principal); N39.0 Urinary tract infection, site not specified; E53.8 Deficiency of other specified B group vitamins; E78.5 Hyperlipidemia, unspecified; F03.90 Unspecified dementia, unspecified severity, without behavioral disturbance, psychotic disturbance, mood disturbance, and anxiety; F17.200 Nicotine dependence, unspecified, uncomplicated; J44.9 Chronic obstructive pulmonary disease, unspecified; Z79.82 Long term (current) use of aspirin; Z79.899 Other long term (current) drug therapy; Z87.440 Personal history of urinary (tract) infections; Z90.49 Acquired absence of other specified parts of digestive tract; Z90.710 Acquired absence of both cervix and uterus; Z86.69 Personal history of other diseases of the nervous system and sense organs; Z86.79 Personal history of other diseases of the circulatory system; Z87.09 Personal history of other diseases of the respiratory system; Z87.438 Personal history of other diseases of male genital organs; Z87.42 Personal history of other diseases of the female genital tract; Z87.39 Personal history of other diseases of the musculoskeletal system and connective tissue; W18.39XA Other fall on same level, initial encounter; Y93.89 Activity, other specified; Y92.89 Other specified places as the place of occurrence of the external cause; Y99.8 Other external cause status
CPT/HCPCS: 99284; 96365; 80048; 81001; 82607; 85025; 87086; 36415; 73030; 73562; 96372; J0696; J3420; A4606; A4663